=== PATIENT | male | born 1955 | race Caucasian/White ===

== ENCOUNTER 2017-01-28 06:22 | Inpatient (IN) ==
--- NOTE | 2017-01-27 18:24 | History and Physical ---
CHIEF COMPLAINT Right knee pain. HPI This 61-year-old gentleman has had pain in his right knee for many years. The pain is becoming severe and disabling in nature. Pain is described as aching. It does not radiate. It is aggravated with squatting, movement and walking activities. He reports weakness, swelling, sensation of the knee giving way, locking and popping. He has tried rest, Aleve, pain medication, Lyrica and exercises without improvement of his symptoms. PAST MEDICAL HISTORY Anxiety. Depression. Diabetes. Hypertension. Hypercholesterolemia. Sleep apnea for uses CPAP. Thyroid disease. Obesity. CURRENT MEDICATIONS Advair. Cymbalta. Glucophage. Klonopin. Lipitor. Lyrica. Naproxen. Neurontin. Singulair. Zestril. Aspirin. Calcium. Vitamin B12. Iron. Thyroid. Multivitamin. Trazodone. ALLERGIES Penicillin which has caused restricted airway problems. Remainder of his medical history is well documented in Dr. Espinoza's dictation on the chart. Please refer to that for details. REVIEW OF SYSTEMS Constitutional: Negative for chills, fever, fatigue, malaise, or weight loss. HEENT: Negative for headache, or dizziness. Respiratory: Negative for cough, shortness of air, recent respiratory infections, or wheezing. Cardiovascular: Negative for chest pain, palpitations, leg swelling, or syncope. Gastrointestinal: Negative for abdominal pain, constipation, diarrhea, vomiting , heartburn, or nausea. Skin: Negative for skin infection or rash. Neurological: Negative for numbness of extremity or seizures. Psychiatric: Positive for anxiety and depression. Hematologic/Lymphatic: Negative for easy bleeding or easy bruising. PHYSICAL EXAMINATION This is a 61-year-old male who is cooperative and healthy. He is in no acute distress. His gait is antalgic favoring the right. He does not use any assistive device. Psychologically, he has a normal mood and affect. The right lower extremity shows the knee to be stable to ligamentous exam. He does have a 1+ effusion. He has a fixed varus deformity with tenderness of the medial joint line. The hip has normal range of motion. The skin shows no lesions or rashes. Neurovascular is grossly intact. X-RAYS The patient has severe arthritic change with [id number] articulation at the medial joint compartment. There is subchondral sclerosis and osteophyte formation. ASSESSMENT On the exam he has advanced primary osteoarthritis of the right knee. PLAN Due to the severity of his symptoms, the x-ray findings and failure of nonsurgical treatment, Dr. Espinoza has recommended a right total knee arthroplasty. Risks versus benefits, alternative treatments, possible complications of surgery have all been explained to the patient. Questions have been answered to his satisfaction. Will plan to proceed with a right total knee on 01/28/2017. NOEMY
--- OUTSIDE RECORDS SUMMARY | 2017-01-28 06:28 | External Medical Summary | Continuity of Care Document ---
:[address] [facility] Allergies Active Description Code Type Severity Reaction Onset Reported/ Identified Relationship Clinical to Patient Status Yes Penicillins 476 Drug N/A N/A 08/20/2016 Confirmed Aller or gy Verified Medications Problems Date Dx Attending Type Code Diagnosis Diagnosed By Coded 09/13/2010 D 244.9 HYPOTHYROIDISM NOS 09/13/2010 D 272.0 PURE HYPERCHOLESTEROLEM 09/13/2010 D 311 DEPRESSIVE DISORDER NEC 09/19/2010 D 276.7 HYPERPOTASSEMIA 12/20/2010 D 250.00 DM2/NOS UNCOMP NSU 12/20/2010 D 272.0 PURE HYPERCHOLESTEROLEM 08/06/2011 D V12.72 PERSONAL HISTORY POLYPS 08/06/2011 D V76.51 SCREENING MAL YOLANDA COLON 08/12/2011 D 722.10 LUMBAR DISC DISPLACEMENT 01/13/2012 D 244.9 HYPOTHYROIDISM NOS 01/13/2012 D 272.0 PURE HYPERCHOLESTEROLEM 07/28/2012 KAITLYNN Rico 401.1 BENIGN HYPERTENSION YU YAO 12/19/2012 KAITLYNN Rico 278.01 MORBID OBESITY YU YAO 01/03/2013 Leticia YAO, F 244.9 HYPOTHYROIDISM NOS Ramiro A 01/03/2013 Leticia YAO, F 250.00 DIAB MARIAM WO COMPL, TYPE Ramiro A II OR UNSPEC TYPE, NOT UN 01/03/2013 Leticia YAO, F 272.4 HYPERLIPIDEMIA NEC/NOS Ramiro A 01/03/2013 Leticia YAO, F 278.01 MORBID OBESITY Ramiro A 01/03/2013 Leticia YAO, F 296.80 BIPOLAR DISORDER, Ramiro A UNSPECIFIED 01/03/2013 Leticia YAO, F 300.01 PANIC DISORDER WITHOUT Ramiro A AGORAPHOBIA 01/03/2013 Leticia YAO, F 327.23 OBSTRUCTIVE SLEEP APNEA Ramiro A (ADULT) (PEDIATRIC) 01/03/2013 Leticia YAO, F 401.9 HYPERTENSION NOS Ramiro A 01/03/2013 Leticia YAO, F 493.90 ASTHMA, UNSPECIFIED Ramiro A 01/03/2013 Leticia YAO, F 530.81 ESOPHAGEAL REFLUX Ramiro A 01/03/2013 Leticia YAO, F 716.90 ARTHROPATHY NOS-UNSPEC Ramiro A 01/03/2013 Leticia YAO, F V15.82 HISTORY OF TOBACCO USE Ramiro A 01/03/2013 Leticia YAO, F V58.66 LONG-TERM (CURRENT) USE Ramiro A OF ASPIRIN 01/03/2013 Leticia YAO, F V85.41 BODY MASS INDEX Ramiro A 40.0-44.9, ADULT 11/03/2013 KAITLYNN Rico 260 DAVE YAO, YU R 11/03/2013 KAITLYNN Rico 278.00 OBESITY, UNSPECIFIED , YU Gordon 11/03/2013 KAITLYNN Rico 401.9 HYPERTENSION NOS , YU Gordon 11/16/2013 KAITLYNN Rico 244.9 HYPOTHYROIDISM NOS , YU Gordon 01/09/2015 Krupa YAO, Ot 493.90 Eduardo O 01/09/2015 Krupa YAO, Ot 493.90 Eduardo O 01/13/2015 Krupa YAO, Ot 493.90 Eduardo O 01/15/2015 Krupa YAO, Ot 493.90 Eduardo O 01/15/2015 PAULETTE ANDREWS Ot M25.562 S BOTTLE WASHER MACHINE 01/31/2015 PAULETTE ANDREWS Ot M25.562 S BOTTLE WASHER MACHINE 07/31/2015 KAITLYNN Rico E11.9 Type 2 diabetes mellitus YU YAO without complications 07/31/2015 KAITLYNN Rico I10 Essential (primary) YU YAO hypertension 07/31/2015 KAITLYNN Rico R06.00 Dyspnea, unspecified YU YAO 01/24/2016 KAITLYNN Rico E03.9 Hypothyroidism, YU YAO unspecified 01/24/2016 KAITLYNN Rico I10 Essential (primary) YU YAO hypertension 12/25/2016 KAITLYNN Rico Z01.818 Encounter for other YU YAO preprocedural examination Procedures Code Description Performed By Performed On METABOLIC PANEL KAITLYNN ADAIR MD, 09/13/2010 [id number] TOTAL CA YU R HEPATIC KAITLYNN ADAIR MD, 09/13/2010 01632 FUNCTION PANEL YU R ASSAY THYROID KAITLYNN ADAIR MD, 09/13/2010 82713 STIM HORMONE YU R ELECTROLYTE KAITLYNN ADAIR MD, 09/19/2010 55524 PANEL YU R LIPID PANEL KAITLYNN ADAIR MD, 12/20/2010 07768 YU R HEPATIC KAITLYNN ADAIR MD, 12/20/2010 26548 FUNCTION PANEL YU R DIAGNOSTIC KAITLYNN ADAIR MD, 08/06/2011 08050 COLONOSCOPY JORGE D METABOLIC PANEL KAITLYNN ADAIR MD, 08/12/2011 90208 TOTAL CA JORGE D COMPLETE CBC, KAITLYNN ADAIR MD, 08/12/2011 01678 AUTOMATED JORGE D PROTHROMBIN KAITLYNN ADAIR MD, 08/12/2011 87083 TIME JORGE D THROMBOPLASTIN KAITLYNN ADAIR MD, 08/12/2011 93403 TIME, PARTIAL JORGE D ASSAY THYROID KAITLYNN ADAIR MD, 01/13/2012 26023 STIM HORMONE YU R METABOLIC PANEL KAITLYNN ADAIR MD, 07/28/2012 31463 TOTAL CA YU R Lakeshia YAO, Estephan 10/04/2012 45.16 ESOPHAGOGASTRODUODENOSCOPY [EGD] N W/CLOSED BIOPSY COMPREHEN KAITLYNN ADAIR MD, 12/19/2012 18535 METABOLIC PANEL YU R LAPAROSCOPIC Leticia YAO, 01/03/2013 44.38 GASTROENTEROSTOMY Ramiro A COMPREHEN KAITLYNN ADAIR MD, 11/03/2013 33623 METABOLIC PANEL YU R COMPLETE CBC, KAITLYNN ADAIR MD, 11/03/2013 06770 AUTOMATED YU R ASSAY THYROID KAITLYNN ADAIR MD, 11/16/2013 73113 STIM HORMONE YU R CARDIOVASCULAR KAITLYNN ADAIR MD, 07/31/2015 31658 STRESS TEST YU R METABOLIC PANEL KAITLYNN ADAIR MD, 01/24/2016 90640 TOTAL CA YU R ASSAY THYROID KAITLYNN ADAIR MD, 01/24/2016 72572 STIM HORMONE YU R COMPREHEN KAITLYNN ADAIR MD, 12/25/2016 65356 METABOLIC PANEL YU R COMPLETE CBC KAITLYNN ADAIR MD, 12/25/2016 02802 W/AUTO DIFF WBC YU R Encounters ACCT No. Visit Discharge Status Pt. Type Provider Facility Loc./Unit Complaint Date/Time [id number] 01/03/2013 01/05/2013 DIS Inpatien Leticia Lawson8TN 066 10:16:00 14:50:00 t , [facility] [id number] 12/27/2012 12/27/2012 DIS Outpatie Leticia LawsonPOA 575 12:49:00 12:49:00 nt , [facility] [id number] 10/04/2012 10/04/2012 DIS Outpatie Lakeshia YAO, Chance LawsonEND 194 06:03:00 22:46:00 nt [facility] [id number] 01/09/2015 01/09/2015 CLS Outpatie Jose ANDREWS RAD 019 16:12:00 23:59:59 nt [facility] BOTTLE WASHER MACHINE [id number] 03/16/2013 03/16/2013 CLS Outpatie Krupa Wagner RT 045 12:52:00 23:59:59 nt , [facility] O [id number] 12/25/2016 12/25/2016 DIS Outpatie ULLOM Reading LAB 16:01:00 16:01:00 nt [facility] R [id number] 08/20/2016 08/20/2016 DIS Outpatie ULLOM Reading LUIGI 07:30:00 09:25:[id number] 01/24/2016 01/24/2016 DIS Outpatie ULLOM Reading ALAB 10:20:00 10:20:00 nt MANA Dia [facility] R [id number] 07/31/2015 07/31/2015 DIS Outpatie ULLOM [facility] MED 09:30:00 11:05:00 nt MANA Dia MD, [facility] R [id number] 11/16/2013 11/16/2013 DIS Outpatie ULLOM Reading ALAB 11:08:00 11:08:00 nt MANA Dia MD, [facility] R [id number] 11/03/2013 11/03/2013 DIS Outpatie ULLOM Reading ALAB 16:25:00 16:25:00 nt MANA Dia MD, [facility] R [id number] 12/19/2012 12/19/2012 DIS Outpatie ULLOM Reading ALAB 15:44:00 15:44:00 nt MANA Dia MD, [facility] R [id number] 07/29/2012 07/29/2012 DIS Outpatie ULLOM Reading ALAB 07:28:00 07:28:00 nt MANA Dia MD[facility] R [id number] 01/13/2012 Document 14:19:00 Registra tion [id number] 08/12/2011 Document 10:52:00 Registra tion [id number] 08/06/2011 Document 07:15:00 Registra tion [id number] 12/20/2010 Document 11:28:00 Registra tion [id number] 09/19/2010 Document 13:53:00 Registra tion [id number] 09/13/2010 Document 12:28:00 Registra tion
--- OUTSIDE RECORDS SUMMARY | 2017-01-28 06:28 | External Medical Summary ---
:1955 Author Organization [employer] Care Team Providers Name Role Phone Nader Tang Provider Role Unavailable Allergies, Adverse Reactions, Alerts Substance Reaction Event Type Penicillin Info Not Available Drug Allergy Problems Problem Type Condition Code Onset Dates Condition Status Assessment Abnormal cardiovascular stress test R94.39 Active Assessment Chest pain R07.9 Active Assessment Abnormal EKG R94.31 Active Problem Abnormal cardiovascular stress test R94.39 Active Problem Dyspnea on exertion R06.09 Active Problem Abnormal EKG R94.31 Active Problem Hypertension I10 Active Problem Dyslipidemia E78.5 Active Problem FH ischemic heart disease Z82.49 Active Problem Chest pain R07.9 Active Assessment FH ischemic heart disease Z82.49 Active Assessment Dyslipidemia E78.5 Active Assessment Hypertension I10 Active Assessment Dyspnea on exertion R06.09 Active Medications Medication Code Code Instructions Start End Date Status Dosage System Date Trazodone HCl [facility] 95439-18 100 MG Orally 3 tablet 60-00 Once a day at bedtime Abilify [facility] 24004-21 5 MG Orally Once 1 tablet 45-30 a day Calcium Caltrate NDC 0 PO Qd I tablet Metformin HCl NDC 32858-92 1000 MG Orally 1 tablet 14-01 Tw[place] [address]-96 40 MG Orally 1 tablet 55-10 Once a day in the evening Cymbalta [facility] 94667-11 60 MG Orally 1 capsule 37-01 [place] [address]-20 250 MG Orally qd 2 tablet 47-01 [place] [address]-48 1 MG Orally 1 tablet 33-01 Twice a day Levothyroxine [facility] 87305-25 175 MCG Orally 1 tablet Sodium 17-01 [place] [address]-99 40 MG Orally 1 tablet 70-01 [place] [address]-01 81 MG Orally 1 tablet 74-68 [place] [address]-60 20 MG Orally as not Citrate 17-98 dir defined Procedures Procedure Coding System Code Date Office Consultation Level 4 CPT-4 94103 August 08, 2015 ELECTROCARDIOGRAM, COMPLETE CPT-4 79154 August 08, 2015 Vital Signs Date/Time: August 08, 2015 BMI 47.45 Index Weight 243.0 lbs Height 5'11 in Cardiac Monitoring Heart Rate 62 /min Oximetry 98 % Blood Pressure Diastolic 72 mm Hg Blood Pressure Systolic 120 mm Hg Results Name Result Date Reference Range Unit Abnormality Flag AtriaECW Summary Purpose eClinicalWorks Submission
--- OUTSIDE RECORDS SUMMARY | 2017-01-28 06:28 | External Medical Summary ---
:1955 Author Organization [employer] Care Team Providers Name Role Phone Nader Tang Provider Role Unavailable Allergies No Known Allergies Problems Problem Type Condition Code Onset Dates Condition Status Problem Abnormal cardiovascular stress test R94.39 Active Problem Dyspnea on exertion R06.09 Active Problem Abnormal EKG R94.31 Active Problem Hypertension I10 Active Problem Dyslipidemia E78.5 Active Problem FH ischemic heart disease Z82.49 Active Problem Chest pain R07.9 Active Medications No Known Medications Results No Known Results Summary Purpose eClinicalWorks Submission
--- OUTSIDE RECORDS SUMMARY | 2017-01-28 06:28 | External Medical Summary ---
:1955 Author Organization [facility]. Summary purpose CCDA Sent to [facility] Chief Complaint and Reason for Visit Admit Diagnosis 1 pre-op Problem list No authorized problems tracked for continuity of care are available for this visit. Encounters No authorized problems tracked for encounter diagnoses are available for this visit. Medications No medications recorded for this patient visit Allergies, adverse reactions, alerts Allergen Category Ingredient Status Reaction Severity Onset Penicillins Drug Penicillins Active Immunizations No immunizations recorded for this patient visit Relevant diagnostic tests and/or laboratory data No authorized results are available for this patient visit History of procedures Procedure Code Code Type Description Date Performed Performing Physician 52014 CPT-4 COMPREHEN METABOLIC 12-25-2016 YU ADAIR PANEL 16152 CPT-4 COMPLETE CBC W/AUTO 12-25-2016 YU ADAIR DIFF WBC Functional status No functional or cognitive status observations are available for this visit. Vital signs No authorized vital signs are available for this visit. Social history No Social History or smoking status observations were recorded for this visit. ( Unknown if ever smoked.) Treatment Plan No treatment plan text is available for this visit. Hospital discharge instructions No discharge instruction text is available for this visit.
[2017-01-28] MEDS ORDERED: FAMOTIDINE PB 20 MG/50 ML BAG IV ONE (06:34)
[2017-01-28] MEDS ORDERED: ONDANSETRON 4 MG/2 ML INJECTION IVP ONE (06:34)
[2017-01-28] MEDS ORDERED: CLINDAMYCIN PB 900 MG/50 ML BAG IV ONE (06:34)
[2017-01-28] MEDS ORDERED: EPINEPHrine PF 0.25 MG, BUPIVACAINE 0.25% PF 30 ML, MORPHINE SULFATE 15 MG, KETOROLAC I... OPSITE ONE (06:34)
[2017-01-28] MEDS ORDERED: LIDOCAINE 1% (10mg/ml) 2mL INJ PF SDV ID ONE (06:34)
[2017-01-28] MEDS ORDERED: TRANEXAMIC ACID 1,000 MG in NS 100 ML IV ONE (06:34)
[2017-01-28] MEDS ORDERED: SALINE FLUSH 10ml SYRINGE IV PRN (06:34)
[2017-01-28] MEDS ORDERED: METOCLOPRAMIDE 10mg/2ml INJECTION IVP ONE (06:34)
[2017-01-28] MEDS ORDERED: NOZIN NASAL SWAB NAS ONE (06:34)
[2017-01-28] MEDS ORDERED: ACETAMINOPHEN 500 MG TABLET PO ONE (06:34)
[2017-01-28 06:42] VITALS: RESP 16; TEMP 98.4; O2SAT 93; BMI 32.7
[2017-01-28 07:31] VITALS: PULSE 67
[2017-01-28] MEDS ORDERED: VANCOMYCIN 1,000 MG INJECTION ONE (08:01)
[2017-01-28] MEDS ORDERED: LR 1,000 ML IV SCH (16:15)
[2017-01-29 09:12] VITALS: BP 80/45
== END 2017-01-28 08:14 | disposition home or self-care (01) | DRG 554 ==
LOC: SRG 06:22
PROVIDERS: ADMIT Orthopaedic Surgery; ATTEND Orthopaedic Surgery

== ENCOUNTER 2017-02-11 06:15 | Inpatient (IN) ==
[~2017-02-11 06:15] MED LIST: ACETAMINOPHEN 500 MG TABLET PO ONE; CLINDAMYCIN PB 900 MG/50 ML BAG IV ONE; FAMOTIDINE PB 20 MG/50 ML BAG IV ONE; LIDOCAINE 1% (10mg/ml) 2mL INJ PF SDV ID ONE; MELOXICAM 15 MG TABLET PO ONE; METOCLOPRAMIDE 10mg/2ml INJECTION IVP ONE; ONDANSETRON 4 MG/2 ML INJECTION IVP ONE; TRANEXAMIC ACID 1,000 MG in NS 100 ML IV ONE
--- OUTSIDE RECORDS SUMMARY | 2017-02-11 06:21 | External Medical Summary ---
[...] Date Status Dosage System Date Trazodone HCl [facility] 56683-16 100 MG Orally 3 tablet 60-00 Once a day at bedtime Abilify [facility] 20989-43 5 MG Orally Once 1 tablet 45-30 a day Calcium Caltrate NDC 0 PO Qd I tablet Metformin HCl NDC 37950-60 1000 MG Orally 1 tablet 14-01 Tw[place] [address]-56 40 MG Orally 1 tablet 55-10 Once a day in the evening Cymbalta [facility] 84063-93 60 MG Orally 1 capsule 37-01 [place] [address]-01 250 MG Orally qd 2 tablet 47-01 [place] [address]-68 1 MG Orally 1 tablet 33-01 Twice a day Levothyroxine [facility] 93029-95 175 MCG Orally 1 tablet Sodium 17-01 [place] [address]-28 40 MG Orally 1 tablet 70-01 [place] [address]-07 81 MG Orally 1 tablet 74-68 [place] [address]-07 20 MG Orally as not Citrate 17-98 dir defined Procedures Procedure Coding System Code Date Office Consultation Level 4 CPT-4 74121 August 08, 2015 ELECTROCARDIOGRAM, COMPLETE CPT-4 26503 August 08, 2015 Vital Signs Date/Time: August 08, 2015 BMI 47.45 Index Weight 243.0 lbs Height 5'11 in Cardiac Monitoring Heart Rate 62 /min Oximetry 98 % Blood Pressure Diastolic 72 mm Hg Blood Pressure Systolic 120 mm Hg Results Name Result Date Reference Range Unit Abnormality Flag AtriaECW Summary Purpose [employer]ClinicalWorks Submission
--- OUTSIDE RECORDS SUMMARY | 2017-02-11 06:22 | External Medical Summary | Continuity of Care Document ---
:[address] [facility] Allergies Active Description Code Type Severity Reaction Onset Reported/ Identified Relationship Clinical to Patient Status Yes Penicillins 476 Drug N/A N/A 08/20/2016 Confirmed Aller or gy Verified Medications There is no data. Problems Date Dx Attending Type Code Diagnosis [...] 296.80 BIPOLAR DISORDER, Ramiro A UNSPECIFIED 01/03/2013 Leitcia YAO, F 300.01 PANIC DISORDER WITHOUT Ramiro A AGORAPHOBIA 01/03/2013 Leticia YAO, F 327.23 OBSTRUCTIVE SLEEP APNEA Ramiro A (ADULT) (PEDIATRIC) 01/03/2013 Leticia YAO, F 401.9 HYPERTENSION NOS Ramiro A 01/03/2013 Leticia YAO, F 493.90 ASTHMA, UNSPECIFIED Ramiro A 01/03/2013 Leticia YAO, F 530.81 ESOPHAGEAL REFLUX Ramiro A 01/03/2013 Leticia YAO, F 716.90 ARTHROPATHY NOS-UNSPEC Ramiro A 01/03/2013 Leticia YOA, F V15.82 HISTORY OF TOBACCO USE Ramiro A 01/03/2013 Leticia YAO, F V58.66 LONG-TERM (CURRENT) USE Ramiro A OF ASPIRIN 01/03/2013 Leticia YAO, F V85.41 BODY MASS INDEX Ramiro A 40.0-44.9, ADULT 11/03/2013 KAITLYNN Rico 260 DAVE YAO, YU Gordon 11/03/2013 KAITLYNN Rico 278.00 OBESITY, UNSPECIFIED , YU Gordon 11/03/2013 KAITLYNN Rico 401.9 HYPERTENSION NOS , YU Gordon 11/16/2013 KAITLYNN Rico 244.9 HYPOTHYROIDISM NOS , YU Gordon 01/09/2015 Krupa YAO, Ot 493.90 Eduardo O 01/09/2015 Krupa YAO, Ot 493.90 Eduardo O 01/13/2015 Krupa YAO, Ot 493.90 Eduardo O 01/15/2015 Krupa YAO, Ot 493.90 Eduardo O 01/15/2015 PAULETTE ANDREWS Ot 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 01/31/2015 PAULETTE ANDREWS Ot 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 07/31/2015 KAITLYNN Rico E11.9 Type 2 diabetes [...] Description Performed By Performed On METABOLIC PANEL TOTAL KAITLYNN ADAIR MD, 09/13/2010 [id number] CA YU R HEPATIC FUNCTION PANEL KAITLYNN ADAIR MD, 09/13/2010 [id number] YU R ASSAY THYROID STIM KAITLYNN ADAIR MD, 09/13/2010 [id number] HORMONE YU R ELECTROLYTE PANEL KAITLYNN ADAIR MD, 09/19/2010 [id number] YU R LIPID PANEL KAITLYNN ADAIR MD, 12/20/2010 [id number] YU R HEPATIC FUNCTION PANEL KAITLYNN ADAIR MD, 12/20/2010 [id number] YU R DIAGNOSTIC COLONOSCOPY KAITLYNN ADAIR MD, 08/06/2011 70770 JORGE Rico METABOLIC PANEL TOTAL KAITLYNN ADAIR MD, 08/12/2011 74808 CA JORGE Rico COMPLETE CBC, AUTOMATED KAITLYNN ADAIR MD, 08/12/2011 81535 JORGE Rico PROTHROMBIN TIME KAITLYNN ADAIR MD, 08/12/2011 [id number] JORGE Rico THROMBOPLASTIN TIME, KAITLYNN ADAIR MD, 08/12/2011 [id number] PARTIAL JORGE Rico ASSAY THYROID STIM KAITLYNN ADAIR MD, 01/13/2012 [id number] HORMONE YU R METABOLIC PANEL TOTAL KAITLYNN ADAIR MD, 07/28/2012 07092 CA YU R Lakeshia YAO, Estephan 10/04/2012 45.16 ESOPHAGOGASTRODUODENOSCOPY [EGD] N W/CLOSED BIOPSY COMPREHEN METABOLIC KAITLYNN ADAIR MD, 12/19/2012 [id number] PANEL YU R LAPAROSCOPIC Leticia YAO, 01/03/2013 44.38 GASTROENTEROSTOMY Ramiro A COMPREHEN METABOLIC KAITLYNN ADAIR MD, 11/03/2013 39032 PANEL YU R COMPLETE CBC, AUTOMATED KAITLYNN ADAIR MD, 11/03/2013 11646 YU R ASSAY THYROID STIM KAITLYNN ADAIR MD, 11/16/2013 89937 HORMONE YU R CARDIOVASCULAR STRESS KAITLYNN ADAIR MD, 07/31/2015 13749 TEST YU R METABOLIC PANEL TOTAL KAITLYNN ADAIR MD, 01/24/2016 68445 CA YU R ASSAY THYROID STIM KAITLYNN ADAIR MD, 01/24/2016 [id number] HORMONE YU R COMPREHEN METABOLIC KAITLYNN ADAIR MD, 12/25/2016 98615 PANEL YU R COMPLETE CBC W/AUTO KAITLYNN ADAIR MD, 12/25/2016 23417 DIFF WBC YU R <section xmlns="urn:hl7-org:v3" xmlns:xsi="http://www.w3.org/ 2001/XMLSchema-instance"> <templateId root=" [id number]" /> <templateId root=" [id number]" /> <code codeSystemName=" LOINC" codeSystem="[id number]" code="48915-7&quot ; displayName="Results" /> <title>Results</title> &lt ;text> <table> <thead> <tr> <th& gt;Test</th> <th>Result</th> <th>Range </th> </tr> </thead> <tbody> &lt ;tr> <th colspan="10">Basic Metabolic Panel - 17:10</th> </tr> <tr> <td>Sodium& lt;/td> <td>142 MMOLL</td><td>134-145</td> </tr> <tr> <td>Potassium</td> <td>4.8 MMOLL</td> <td>3.6-5.0</td> </tr> <tr> <td>Chloride</td> <td>102 MMOLL</td> <td>98-107</td> </ tr> <tr> <td>CO2</td> <td> 30 MMOLL</td> <td>22-30</td> </tr> & lt;tr> <td>Glucose</td> <td>76 MG/DL</ td><td>75-110</td> </tr> <tr> <td>BUN</td> <td>17 MG/DL</td> <td> 9-20</td> </tr> <tr> <td> Creatinine</td> <td>.8 MG/DL</td> <td> 0.8-1.7</td> </tr> <tr> <td> Calcium</td> <td>9.5 MG/DL</td> <td>8.4- 10.2</td> </tr> <tr> <th colspan="10 ">GLUCOSE (POC) - 10/04/12 07:06</th> </tr> <tr > <td>GLUCOSE (POC)</td> <td>115mg/dL< /td> <td>70-99</td> </tr> <tr&gt ; <th colspan="10">HELICOBACTER UREASE SCREEN - 10:41</th> </tr> <tr> <td> Uncategorized</td> <td> </td> <td /> </tr> <tr> <th colspan="10"> Comprehensive Metabolic Panel - 12/19/12 14:59</th> </tr> <tr><td>Sodium</td> <td>139 MMOLL</td& gt; <td>134-145</td> </tr> <tr> <td>Potassium</td> <td>4.3 MMOLL</td> <td>3.6-5.0</td> </tr> <tr> & lt;td>Chloride</td> <td>97 MMOLL</td> &lt ;td>98-107</td> </tr> <tr> <td&gt ;CO2</td> <td>30 MMOLL</td> <td>22-30& lt;/td> </tr> <tr> <td>Glucose</ td> <td>99 MG/DL</td> <td>75-110</td& gt; </tr> <tr> <td>BUN</td> <td>17 MG/DL</td> <td>9-20</td> &lt ;/tr> <tr> <td>Creatinine</td> &lt ;td>.9 MG/DL</td> <td>0.8-1.7</td> </tr& gt; <tr> <td>Calcium</td> <td> 9.5 MG/DL</td> <td>8.4-10.2</td> </tr> <tr> <td>T Bili</td> <td>.3 MG/ DL</td> <td>0.2-1.3</td> </tr> & lt;tr> <td>T. Protein</td> <td>7.2 G/DL& lt;/td> <td>6.3-8.2</td> </tr> < tr> <td>A/G Ratio</td> <td>1.3 RATIO</td> <td /></tr> <tr> <td>Albumin< /td> <td>4.1 G/DL</td> <td>3.5-5.0</td > </tr> <tr> <td>Alk Phos</td&gt ; <td>84 U/L</td> <td>38-126</td> </tr> <tr> <td>ALT</td> &lt ;td>43 U/L</td> <td>11-66</td> </tr> <tr> <td>AST</td> <td>50 U/L< /td> <td>14-36</td> </tr> <tr> <th colspan="10">GLUCOSE (POC) - 12/27/12 13:43</th&gt ; </tr> <tr> <td>GLUCOSE (POC)</td> <td>93 mg/dL</td> <td>70-99</td> </tr> <tr> <th colspan="10">CBC - 12/27/12 13:45</th> </tr> <tr> <td&gt ;MEAN CELL HGB</td> <td>30.5 pg</td> <td& gt;27.0-33.0</td> </tr> <tr> <td> MEAN CELL HGB CONCENTRATION</td> <td>34.9 g/dL</td> <td>32.0-37.0</td> </tr> <tr> <td>MEAN CELL VOLUME</td> <td>87.3 fl</td& gt; <td>80.0-100.0</td> </tr> <tr&gt ; <td>RED BLOOD CELL</td> <td>5.05 m/cumm&lt ;/td> <td>4.00-6.00</td> </tr> < tr> <td>RED CELL DISTRIBUTION WIDTH</td> <td >12.4 %</td> <td>11.0-15.6</td> </tr&gt ; <tr> <td>WHITE BLOOD CELL</td> < td>5.9k/cumm</td> <td>5.0-10.0</td> </tr > <tr> <td>HEMOGLOBIN</td> <td>15.4 gm/dL</td> <td>14.0-18.0</td> </tr> <tr> <td>HEMATOCRIT</td><td>44.1 %& lt;/td> <td>40.0-54.0</td> </tr> <tr&gt ; <td>PLATELET COUNT</td> <td>182 k/cumm< /td> <td>150-400</td> </tr> <tr> <th colspan="10">GLUCOSE (POC) - 01/03/13 11:00</th& gt; </tr> <tr><td>GLUCOSE (POC)</td> <td>96 mg/dL</td> <td>70-99</td> & lt;/tr> <tr> <th colspan="10">GLUCOSE ( POC) - 01/03/13 12:20</th> </tr> <tr> & lt;td>GLUCOSE (POC)</td> <td>95 mg/dL</td> <td>70-99</td> </tr> <tr> < th colspan="10">URINALYSIS, ROUTINE - 01/03/13 12:22</th> </tr> <tr> <td>UA LEUKOCYTE ESTERASE DIPSTICK</td> <td>NEGATIVE </td> <td> NEGATIVE</td> </tr> <tr> <td>UA NITRITE DIPSTICK</td> <td>NEGATIVE </td> &lt ;td>NEGATIVE</td> </tr> <tr> <td& gt;UA PROTEIN DIPSTICK</td> <td>NEGATIVE </td> <td>NEGATIVE</td> </tr> <tr> <td>UA GLUCOSE DIPSTICK</td> <td>NEGATIVE </td> <td>NEGATIVE</td> </tr> <tr> <td>UA KETONE DIPSTICK</td> <td>3+ </td> & lt;td>NEGATIVE</td> </tr> <tr> < td>UA UROBILINOGEN DIPSTICK</td> <td>NORMAL </td> <td>NORMAL</td> </tr> <tr> <td>UA BILIRUBIN DIPSTICK</td> <td>NEGATIVE </ td> <td>NEGATIVE</td> </tr> <tr& gt; <td>UA BLOOD DIPSTICK</td> <td>NEGATIVE </td> <td>NEGATIVE</td> </tr> &lt ;tr> <td>UA VOLUME FOR EXAM</td> <td> 12.0 mL</td> <td>(12mL STD)</td> </tr> <tr> <td>UA SPECIFIC GRAVITY</td> &lt ;td>1.021 </td> <td>1.015-1.025</td> </ tr> <tr> <td>UR PH</td> <td>6.0 < /td> <td>5.0-7.0</td> </tr> <tr& gt; <th colspan="10">GLUCOSE (POC) - 01/03/13 14:45< /th> </tr> <tr> <td>GLUCOSE (POC)&lt ;/td> <td>109 mg/dL</td> <td>70-99</td > </tr> <tr> <th colspan="10"> CREATINE KINASE (CK/CPK) - 01/03/13 18:19</th> </tr> & lt;tr> <td>CREATINE KINASE (CK/CPK)</td> <td&gt ;118 Units/L</td> <td>< 309</td> </ tr> <tr> <th colspan="10">CK MB - 01/03 18:19</th> </tr> <tr> <td>CK MB</ td> <td>1.9 ng/mL</td> <td>< 4.0& lt;/td> </tr> <tr> <th colspan="10 ">TROPONIN I - 01/03/13 18:19</th> </tr> < tr> <td>TROPONIN I</td> <td>< 0.02 ng/mL</td> <td>< 0.07</td> </tr> <tr> <th colspan="10">GLUCOSE (POC) - 00:02</th> </tr> <tr> <td>GLUCOSE (POC) </td> <td>150 mg/dL</td> <td>70-99< /td> </tr> <tr> <th colspan="10& quot;>GLUCOSE (POC) - 01/04/13 00:52</th> </tr> &lt ;tr> <td>GLUCOSE (POC)</td> <td>183 mg/dL </td> <td>70-99</td> </tr> <tr > <th colspan="10">METABOLIC PANEL, BASIC - 04:53</th> </tr> <tr> <td> POTASSIUM</td><td>4.5 mmol/L</td> <td>3.5-5.3& lt;/td> </tr> <tr> <td>EST GFR (MDRD )</td> <td>47 mL/min</td> <td>&gt ; 59</td> </tr> <tr> <td>ANION GAP</td> <td>8 mmol/L</td> <td>5-15&lt ;/td> </tr> <tr> <td>EST CrCl (CG)&lt ;/td> <td>52 mL/min</td> <td>> 59& lt;/td> </tr> <tr> <td>GLUCOSE</ td> <td>143 mg/dL</td> <td>70-99</td& gt; </tr> <tr> <td>CALCIUM</td> <td>8.5 mg/dL</td> <td>8.5-10.1</td> </tr> <tr> <td>BLOOD UREA NITROGEN</ td> <td>16 mg/dL</td> <td>7-20</td&gt ; </tr> <tr> <td>CREATININE</td> <td>1.6 mg/dL</td> <td>0.8-1.3</td> </tr> <tr> <td>SODIUM</td> &lt ;td>139 mmol/L</td> <td>135-148</td> </ tr> <tr> <td>CHLORIDE</td> <td& gt;105 mmol/L</td> <td>98-110</td> </tr&gt ; <tr> <td>CARBON DIOXIDE</td> <td& gt;26 mmol/L</td> <td>21-32</td> </tr> <tr> <th colspan="10">CBC - 01/04/13 04:53 </th> </tr> <tr> <td>MEAN CELL HGB</td> <td>30.2 pg</td> <td>27.0- 33.0</td> </tr> <tr> <td>MEAN CELL HGB CONCENTRATION</td> <td>33.7 g/dL</td> <td>32.0-37.0</td> </tr> <tr> < td>MEAN CELL VOLUME</td> <td>89.8 fl</td> <td>80.0-100.0</td> </tr> <tr> <td>RED BLOOD CELL</td> <td>4.60 m/cumm</td> <td>4.00-6.00</td> </tr> <tr> <td>RED CELL DISTRIBUTION WIDTH</td> <td>12.8 & amp;#37;</td> <td>11.0-15.6</td> </tr> <tr> <td>WHITE BLOOD CELL</td> <td&gt ;15.0 k/cumm</td> <td>5.0-10.0</td> </tr&gt ; <tr> <td>HEMOGLOBIN</td> <td> 13.9 gm/dL</td> <td>14.0-18.0</td> </tr&gt ; <tr> <td>HEMATOCRIT</td> <td> 41.3 %</td> <td>40.0-54.0</td> </tr > <tr> <td>PLATELET COUNT</td> &lt ;td>209 k/cumm</td> <td>150-400</td> </ tr> <tr> <th colspan="10">GLUCOSE (POC ) - 01/04/13 05:18</th> </tr> <tr> < td>GLUCOSE (POC)</td> <td>150 mg/dL</td> <td>70-99</td> </tr> <tr> <th colspan="10">GLUCOSE (POC) - 01/04/13 11:29</th> </tr& gt; <tr> <td>GLUCOSE (POC)</td> < td>129 mg/dL</td> <td>70-99</td> </tr&gt ; <tr> <th colspan="10">HEMOGLOBIN - 01/04 13:37</th> </tr> <tr> <td> MEAN CELL VOLUME</td> <td>89.7 fl</td><td>80.0- 100.0</td> </tr> <tr> <td> HEMOGLOBIN</td> <td>13.2 gm/dL</td> <td& gt;14.0-18.0</td> </tr> <tr> <th colspan="10">TROPONIN I - 01/04/13 13:37</th> </tr& gt; <tr> <td>TROPONIN I</td> <td& gt;< 0.02 ng/mL</td> <td>< 0.07</td> </tr> <tr> <th colspan="10">GLUCOSE (POC) - 01/04/13 17:40</th> </tr> <tr> < td>GLUCOSE (POC)</td> <td>119 mg/dL</td> <td>70-99</td> </tr> <tr> <th colspan="10">GLUCOSE (POC) - 01/05/13 00:57</th> </ tr> <tr> <td>GLUCOSE (POC)</td> & lt;td>115 mg/dL</td><td>70-99</td> </tr> <tr> <th colspan="10">GLUCOSE (POC) - 06:28</th> </tr> <tr> <td> GLUCOSE (POC)</td> <td>109 mg/dL</td> <td >70-99</td> </tr> <tr> <th colspan="10">GLUCOSE (POC) - 01/05/13 11:48</th> </ tr> <tr> <td>GLUCOSE (POC)</td> & lt;td>104 mg/dL</td> <td>70-99</td> </tr > <tr> <th colspan="10">CBC - 11/03/13 15:45 </th> </tr> <tr> <td>Eos #</td > <td>0.34 x10^3</td> <td>0-0.5</td&gt ; </tr> <tr> <td>Eos %</td& gt; <td>4.9 %</td> <td>0-4</td&gt ;</tr> <tr> <td>HCT</td> <td >39.5 %</td> <td>42.0-52.0</td> &lt ;/tr> <tr> <td>HGB</td> <td> 13.3 G/DL</td> <td>14.0-18.0</td> </tr> <tr> <td>Lymph #</td> <td>1.44 x10 ^3</td> <td>1.0-4.0</td> </tr> & lt;tr> <td>Lymph %</td> <td>20.7 %</td> <td>20-50</td> </tr> <tr> <td>MCH</td> <td>31.1 PG</ td> <td>27.0-31.0</td> </tr> <tr& gt; <td>MCHC</td> <td>33.7 G/DL</td> <td>32.0-36.0</td> </tr> <tr> <td>MCV</td> <td>92.3 FL</td> <td >80-94</td> </tr> <tr> <td> Jessamine #</td> <td>0.56 x10^3</td> <td> 0.0-0.8</td> </tr> <tr> <td>Jessamine %</td> <td>8.0 %</td> <td >1.0-9.0</td> </tr> <tr> <td> MPV</td> <td>11.0 FL</td> <td>6.0-10.0 </td> </tr> <tr> <td>Platelet< /td> <td>178 x10^3</td> <td>150-400</ td> </tr> <tr> <td>RBC</td> <td>4.28 x10^3</td> <td>4.60-6.20</td> </tr> <tr> <td>RDW</td> <td>12.7 %</td> <td>12-15</td> </tr> <tr> <td>WBC</td> < td>6.96 x10^3</td> <td>5.8-10.8</td> </ tr> <tr> <td>Baso #</td> <td&gt ;0.04 x10^3</td> <td>0-0.2</td> </tr> <tr> <td>Baso %</td> <td&gt ;0.6 %</td><td>0-2</td> </tr> < tr> <td>Neut %</td> <td>65.8 &amp ;#37;</td> <td>50-70</td> </tr> & lt;tr> <td>Neut #</td> <td>4.58 x10^3< /td> <td>3.0-7.0</td> </tr> <tr&gt ; <th colspan="10">Comprehensive Metabolic Panel - 02/04 15:45</th> </tr> <tr> <td> Sodium</td> <td>138 MMOLL</td> <td>134 -145</td> </tr> <tr> <td> Potassium</td> <td>4.5 MMOLL</td> <td> 3.6-5.0</td> </tr> <tr> <td>Chloride& lt;/td> <td>99 MMOLL</td><td>98-107</td> </tr> <tr> <td>CO2</td> < td>30 MMOLL</td> <td>22-30</td> </tr&gt ; <tr> <td>Glucose</td> <td>72 MG/DL</td> <td>75-110</td> </tr> <tr> <td>BUN</td> <td>21 MG/DL</td> <td>9-20</td> </tr> <tr> &lt ;td>Creatinine</td> <td>.7 MG/DL</td> &lt ;td>0.8-1.7</td> </tr> <tr> <td& gt;Calcium</td> <td>9.4 MG/DL</td> <td>8.4- 10.2</td> </tr> <tr> <td>T Bili& lt;/td> <td>.6 MG/DL</td> <td>0.2-1.3< /td> </tr> <tr> <td>T. Protein</ td> <td>6.0 G/DL</td> <td>6.3-8.2</td&gt ; </tr><tr> <td>A/G Ratio</td> <td>1.6 RATIO</td> <td /> </tr> & lt;tr> <td>Albumin</td> <td>3.7 G/DL</ td> <td>3.5-5.0</td> </tr> <tr&gt ; <td>Alk Phos</td> <td>64 U/L</td> <td>38-126</td> </tr> <tr> <td>ALT</td> <td>31 U/L</td> <td&gt ;11-66</td> </tr> <tr> <td>AST&lt ;/td> <td>24 U/L</td> <td>14-36</td&gt ; </tr> <tr> <th colspan="10">TSH - 11/16/13 08:42</th> </tr> <tr> <td >TSH</td> <td>2.46UIUML</td> <td> 0.50-6.00</td> </tr> <tr> <th colspan=" 10">Basic Metabolic Panel - 01/24/16 11:23</th> </tr&gt ; <tr> <td>Sodium</td> <td>141 MMOLL</td> <td>134-145</td> </tr> &lt ;tr> <td>Potassium</td> <td>4.7 MMOLL< /td> <td>3.6-5.0</td> </tr> <tr& gt; <td>Chloride</td> <td>103 MMOLL</td& gt; <td>98-107</td> </tr> <tr> <td>CO2</td> <td>31 MMOLL</td> <td>22-30</td> </tr> <tr> < td>Glucose</td> <td>93 MG/DL</td> <td> 75-110</td> </tr> <tr> <td>BUN&lt ;/td> <td>21 MG/DL</td> <td>9-20</td& gt; </tr> <tr> <td>Creatinine</td> <td>.84 MG/DL</td> <td>0.8-1.7</td> < /tr> <tr> <td>Calcium</td> <td& gt;9.5 MG/DL</td> <td>8.4-10.2</td> </tr&gt ; <tr> <td>EGFR</td> <td>93 MLMIN</td> <td /> </tr> <tr> & lt;th colspan="10">TSH -01/24/16 11:36</th> </tr&gt ; <tr> <td>TSH</td> <td>1.79 UIUML& lt;/td> <td>0.50-6.00</td> </tr></tbody& gt; </table> </text> <entry> <organizer moodCode=& quot;EVN" classCode="BATTERY"> <templateId root=" [id number]" /> <id nullFlavor="NA&quot ; /> <code codeSystem="local" code="BMP" displayName="Basic Metabolic Panel" /> <statusCode code=& quot;completed" /> <component> <observation moodCode="EVN" classCode="OBS"> <templateId root="[id number]..22.4.2" /> <id nullFlavor=& quot;NA" /> <code codeSystem="local" code="NA " displayName="Sodium" /> <statusCode code=" completed"/> <effectiveTime value="[id number]" / > <value unit="MMOLL" xsi:type="PQ" value=& quot;142" /> <referenceRange> <observationRange&gt ; <text>134-145</text> </observationRange > </referenceRange> </observation> </ component> <component> <observation moodCode="EVN" classCode="OBS"> <templateId root=" [id number]" /> <id nullFlavor="NA& quot; /> <code codeSystem="local" code="K" displayName="Potassium" /> <statusCode code=" completed" /> <effectiveTime value="[id number]" /> <value unit="MMOLL" xsi:type="PQ" value=& quot;4.8" /> <referenceRange> < observationRange> <text>3.6-5.0</text> & lt;/observationRange> </referenceRange> </ observation> </component> <component> <observation moodCode="EVN" classCode="OBS"> <templateId root="[id number]" /> <id nullFlavor ="NA" /> <code codeSystem="local" code="CL& quot; displayName="Chloride" /> <statusCode code=" completed" /> <effectiveTime value="[id number]" /> <value unit="MMOLL" xsi:type="PQ" value=& quot;102" /> <referenceRange> < observationRange> <text>98-107</text> &lt ;/observationRange> </referenceRange> </observation> </component> <component> <observation moodCode=& quot;EVN" classCode="OBS"> <templateId root=" [id number]2.4.2" /> <id nullFlavor="NA& quot; /> <code codeSystem="local" code="CO2" displayName="CO2" /> <statusCode code="completed& quot; /> <effectiveTime value="110213215977" /> &lt ;value unit="MMOLL" xsi:type="PQ" value="30" /&gt ; <referenceRange> <observationRange> <text>22-30</text> </observationRange> < /referenceRange> </observation> </component> &lt ;component> <observation moodCode="EVN" classCode=" OBS"> <templateId root="2.16.840.1.152700.10.20.22.4.2& quot; /> <id nullFlavor="NA" /> <code codeSystem="local" code="GLU" displayName="Glucose&quot ; /> <statusCode code="completed" /> < effectiveTime value="988576688113" /> <value unit=&quot ;MG/DL" xsi:type="PQ" value="76" /> < referenceRange> <observationRange> <text>75-110</ text> </observationRange> </referenceRange> </observation> </component> <component> <observation moodCode="EVN" classCode="OBS">< templateId root="2.16.840.1.227365.10.20.22.4.2" /> < id nullFlavor="NA" /> <code codeSystem="local&quot ; code="BUN" displayName="BUN" /> < statusCode code="completed" /> <effectiveTimevalue=& quot;118673007701" /> <value unit="MG/DL" xsi:type ="PQ" value="17" /> <referenceRange> <observationRange> <text>9-20</text> </observationRange> </referenceRange> </ observation> </component> <component> < observation moodCode="EVN" classCode="OBS"> < templateId root="2.16.840.1.798260.10.20.22.4.2" /> < id nullFlavor="NA" /> <code codeSystem="local&quot ; code="CREAT" displayName="Creatinine" /> < statusCode code="completed" /> <effectiveTime value=& quot;112319979889" /> <value unit="MG/DL" xsi:type ="PQ" value=".8"/> <referenceRange> <observationRange> <text>0.8-1.7</text> </observationRange> </referenceRange> </ observation> </component> <component> < observation moodCode="EVN" classCode="OBS"> < templateId root="2.16.840.1.880592.10.20.22.4.2" /> < id nullFlavor="NA" /> <code codeSystem="local&quot ; code="CA" displayName="Calcium" /> < statusCode code="completed" /> <effectiveTime value=& quot;053077270082" /> <value unit="MG/DL" xsi:type ="PQ" value="9.5" /> <referenceRange> <observationRange> <text>8.4-10.2</text> </observationRange> </referenceRange> </ observation> </component> </organizer> </entry> & lt;entry> <organizer moodCode="EVN" classCode="BATTERY& quot;> <templateId root="2.16.840.1.482271.10.20.22.4.1" /& gt; <id nullFlavor="NA" /> <code codeSystem=" local" code="GLUMON" displayName="GLUCOSE (POC)" /> <statusCode code="completed" /> <component> <observation moodCode="EVN" classCode="OBS"> <templateId root="2.16.840.1.843932.10.20.22.4.2" /> <id nullFlavor="NA" /> <code codeSystem=" local" code="GLUMON" displayName="GLUCOSE (POC)" /> <statusCode code="completed" /> < effectiveTime value="[id number]" /> <valueunit=" mg/dL" xsi:type="PQ" value="115" /> < interpretationCode codeSystem="local" code="*" /> <referenceRange> <observationRange> <text>70- 99</text> </observationRange> </ referenceRange> </observation> </component> </ organizer> </entry> <entry> <organizer moodCode="EVN " classCode="BATTERY"> <templateId root=" 2.16.840.1.344020.10.20.22.4.1" /> <id nullFlavor="NA&quot ; /> <code codeSystem="local" code="HELICO" displayName="HELICOBACTER UREASE SCREEN" /> <statusCode code="completed" /> <component> <observation moodCode="EVN" classCode="OBS"> <templateId root="2.16.840.1.595446.10.20.22.4.2" /> <id nullFlavor ="NA" /> <code codeSystem="local" code=" [facility]" displayName="Uncategorized" /> <statusCode code="completed" /> <effectiveTime value=" 390208556371" /> <value xsi:type="ST" value=" <pre><b>HELICOBACTER UREASE SCREEN</b> See BelowHELICOBACTER UREASE SCREEN(F) Seng Date/Time: 10/04/2012 10:41 [place] Date/Time: 10/05/2012 07:14SOURCE: BIOPSYSPEC DESC: HELICOBACTER UREASENEGATIVEST. [facility] - [phone] [facility] [place] [address]</ pre>" /> <referenceRange> < observationRange> <text /> </ observationRange> </referenceRange> </observation&gt ; </component> </organizer> </entry> <entry> <organizer moodCode="EVN" classCode="BATTERY"> <templateId root="2.16.840.1.820241.10.20.22.4.1" /> < id nullFlavor="NA" /> <code codeSystem="local" code="CMP13" displayName="Comprehensive Metabolic Panel" /& gt; <statusCode code="completed" /> <component> <observation moodCode="EVN" classCode="OBS"> <templateId root="2.16.840.1.555532.10.20.22.4.2" /> <id nullFlavor="NA" /> <code codeSystem=& quot;local" code="NA" displayName="Sodium" /> <statusCode code="completed" /> <effectiveTime value="927066830069" /> <value unit="MMOLL" xsi:type="PQ" value="139" /> <referenceRange& gt; <observationRange> <text>134-145</text> </observationRange> </referenceRange> &lt ;/observation> </component> <component> < observation moodCode="EVN" classCode="OBS"> < templateId root="2.16.840.1.233090.10.20.22.4.2" /> < id nullFlavor="NA" /> <code codeSystem="local&quot ; code="K" displayName="Potassium" /> < statusCode code="completed" /> <effectiveTime value=& quot;803163651381" /> <value unit="MMOLL" xsi:type ="PQ" value="4.3" /> <referenceRange> <observationRange> <text>3.6-5.0</text> </observationRange> </referenceRange> &lt ;/observation> </component> <component> < observation moodCode="EVN" classCode="OBS"> < templateId root="2.16.840.1.437724.10.20.22.4.2" /> < id nullFlavor="NA" /> <code codeSystem="local&quot ; code="CL" displayName="Chloride" /> < statusCode code="completed" /> <effectiveTime value=& quot;934851335895" /> <value unit="MMOLL" xsi:type ="PQ" value="97" /> <interpretationCode codeSystem="local" code="L" /> < referenceRange> <observationRange> <text>98-107 </text> </observationRange> </referenceRange& gt; </observation> </component> <component> <observation moodCode="EVN" classCode="OBS"> &lt ;templateId root="2.16.840.1.146518.10.20.22.4.2" /> < id nullFlavor="NA" /> <code codeSystem="local&quot ; code="CO2" displayName="CO2" /> < statusCode code="completed" /> <effectiveTime value=& quot;301691937330" /> <value unit="MMOLL" xsi:type ="PQ" value="30" /> <referenceRange> <observationRange> <text>22-30</text> </observationRange> </referenceRange> </ observation> </component> <component> < observation moodCode="EVN" classCode="OBS"> < templateId root="2.16.840.1.394983.10..22.4.2" /> < id nullFlavor="NA" /> <code codeSystem="local&quot ; code="GLU" displayName="Glucose" /> <statusCode code="completed" /> <effectiveTime value=" 725312396201" /> <value unit="MG/DL" xsi:type=& quot;PQ" value="99" /> <referenceRange> <observationRange> <text>75-110</text> </observationRange> </referenceRange> </ observation> </component> <component> < observation moodCode="EVN" classCode="OBS"> < templateId root="2.16.840.1.066039.10.20.22.4.2" /> < id nullFlavor="NA" /> <code codeSystem="local&quot ; code="BUN" displayName="BUN" /> < statusCode code="completed" /> <effectiveTime value=& quot;413758743884" /> <value unit="MG/DL" xsi:type ="PQ" value="17" /> <referenceRange> <observationRange> <text>9-20</text> </observationRange> </referenceRange> </ observation> </component> <component> < observation moodCode="EVN" classCode="OBS"> < templateId root="2.16.840.1.952074.10.20.22.4.2" /> < id nullFlavor="NA" /> <code codeSystem="local&quot ; code="CREAT" displayName="Creatinine" /> < statusCode code="completed" /> <effectiveTime value=&quot ;294398366505" /> <value unit="MG/DL" xsi:type=& quot;PQ" value=".9" /> <referenceRange> <observationRange> <text>0.8-1.7</text> </observationRange> </referenceRange> </ observation> </component> <component> < observation moodCode="EVN" classCode="OBS"> < templateId root="2.16.840.1.659260.10.20.22.4.2" /> < id nullFlavor="NA" /> <code codeSystem="local&quot ; code="CA" displayName="Calcium" /> < statusCode code="completed" /> <effectiveTimevalue=& quot;692265170209" /> <value unit="MG/DL" xsi:type ="PQ" value="9.5" /> <referenceRange> <observationRange> <text>8.4-10.2</text> </observationRange> </referenceRange> </ observation> </component> <component> < observation moodCode="EVN" classCode="OBS"> < templateId root="2.16.840.1.748633.10.20.22.4.2" /> < id nullFlavor="NA" /> <code codeSystem="local&quot ; code="TBIL" displayName="T Bili" /> <statusCode code="completed" /> <effectiveTime value=" 281037932977" /> <value unit="MG/DL" xsi:type=& quot;PQ" value=".3"/> <referenceRange> <observationRange> <text>0.2-1.3</text> </observationRange> </referenceRange> </ observation> </component> <component> < observation moodCode="EVN" classCode="OBS"> < templateId root="2.16.840.1.818688.10.20.22.4.2" /> < id nullFlavor="NA" /> <code codeSystem="local&quot ; code="TP" displayName="T. Protein" /> < statusCode code="completed" /> <effectiveTime value=& quot;060758443322" /><value unit="G/DL" xsi:type="PQ& quot; value="7.2" /> <referenceRange> &lt ;observationRange> <text>6.3-8.2</text> </ observationRange> </referenceRange> </observation&gt ; </component> <component> <observation moodCode ="EVN" classCode="OBS"> <templateId root=& quot;2.16.840.1.764658.10.20.22.4.2" /> <id nullFlavor="NA& quot; /> <code codeSystem="local" code="AG" displayName="A/G Ratio" /> <statusCode code=" completed" /> <effectiveTime value="864087981267" /> <value unit="RATIO" xsi:type="PQ" value=& quot;1.3" /> <referenceRange> <observationRange> <text /> </observationRange> </ referenceRange> </observation> </component> < component> <observation moodCode="EVN" classCode="OBS& quot;> <templateIdroot="2.16.840.1.238608.10.20.22.4.2&quot ; /> <id nullFlavor="NA" /> <code codeSystem="local" code="ALB" displayName="Albumin&quot ;/> <statusCode code="completed" /> < effectiveTime value="514562123530" /> <value unit=&quot ;G/DL" xsi:type="PQ" value="4.1" /> < referenceRange> <observationRange> <text> 3.5-5.0</text> </observationRange> </ referenceRange> </observation> </component> < component> <observation moodCode="EVN" classCode=" OBS"> <templateId root="2.16.840.1.214746.10.20.22.4.2& quot; /> <id nullFlavor="NA" /> <code codeSystem="local" code="ALP" displayName="Alk Phos& quot; /> <statusCode code="completed" /> & lt;effectiveTime value="664638619074" /> <value unit=& quot;U/L" xsi:type="PQ" value="84" /> < referenceRange> <observationRange> <text> 38-126</text> </observationRange> </ referenceRange> </observation> </component> < component> <observation moodCode="EVN" classCode=" OBS"> <templateId root="2.16.840.1.416779.10.20.22.4.2& quot; /> <id nullFlavor="NA" /> <code codeSystem="local" code="ALT" displayName="ALT" /& gt; <statusCode code="completed" /> < effectiveTime value="363263698386" /> <value unit=&quot ;U/L" xsi:type="PQ" value="43" /> < referenceRange> <observationRange> <text>11-66< /text> </observationRange> </referenceRange> </observation> </component> <component> <observation moodCode="EVN" classCode="OBS"> < templateId root="2.16.840.1.098051.10.20.22.4.2" /> < id nullFlavor="NA" /> <code codeSystem="local&quot ; code="AST" displayName="AST" /> < statusCode code="completed" /> <effectiveTime value=& quot;175783255069" /> <value unit="U/L" xsi:type=& quot;PQ" value="50" /> <interpretationCode codeSystem="local" code="H" /> < referenceRange> <observationRange> <text> 14-36</text> </observationRange> </ referenceRange></observation> </component> </organizer > </entry> <entry><organizer moodCode="EVN" classCode="BATTERY"> <templateId root=" 2.16.840.1.263090.10.20.22.4.1" /> <id nullFlavor="NA&quot ; /> <code codeSystem="local" code="GLUMON" displayName="GLUCOSE (POC)" /> <statusCode code=" completed" /> <component> <observation moodCode=& quot;EVN" classCode="OBS"> <templateId root=" 2.16.840.1.227291.10.20.22.4.2" /> <id nullFlavor="NA& quot; /> <code codeSystem="local" code="GLUMON& quot; displayName="GLUCOSE (POC)" /> <statusCode code=& quot;completed" /> <effectiveTime value="735586681783& quot; /> <value unit="mg/dL" xsi:type="PQ" value="93" /> <referenceRange> < observationRange> <text>70-99</text> < /observationRange> </referenceRange> </observation& gt; </component> </organizer> </entry> <entry&gt ; <organizer moodCode="EVN" classCode="BATTERY"> <templateId root="2.16.840.1.348822.10.20.22.4.1" /> & lt;id nullFlavor="NA" /> <code codeSystem="local&quot ; code="CBC" displayName="CBC" /> <statusCode code="completed" /> <component> <observation moodCode="EVN" classCode="OBS"> <templateId root="2.16.840.1.559981.10.20.22.4.2" /> <id nullFlavor ="NA" /> <code codeSystem="local" code=" MCH" displayName="MEAN CELL HGB" /> <statusCode code="completed" /> <effectiveTime value=" 827976759646" /> <value unit="pg" xsi:type=" PQ" value="30.5" /> <referenceRange> <observationRange> <text>27.0-33.0</text></ observationRange> </referenceRange> </observation&gt ; </component> <component> <observation moodCode ="EVN" classCode="OBS"> <templateId root=& quot;2.16.840.1.612965.10.20.22.4.2" /> <id nullFlavor=&quot ;NA" /> <code codeSystem="local" code="MCHC& quot; displayName="MEAN CELL HGB CONCENTRATION" /> < statusCode code="completed" /> <effectiveTime value=& quot;213291688789" /> <value unit="g/dL" xsi:type= "PQ" value="34.9" /> <referenceRange> <observationRange> <text>32.0-37.0</text&gt ; </observationRange> </referenceRange> & lt;/observation> </component> <component> < observation moodCode="EVN" classCode="OBS"> < templateId root="2.16.840.1.744761.10.20.22.4.2" /> < id nullFlavor="NA" /> <code codeSystem="local&quot ; code="MCV" displayName="MEAN CELL VOLUME" /> & lt;statusCode code="completed" /> <effectiveTime value= "597491419094" /> <value unit="fl" xsi:type=& quot;PQ" value="87.3" /> <referenceRange> < observationRange> <text>80.0-100.0</text> </observationRange> </referenceRange> </ observation> </component><component> <observation moodCode="EVN" classCode="OBS"> <templateId root=& quot;2.16.840.1.377973.10.20.22.4.2" /> <id nullFlavor=&quot ;NA" /> <code codeSystem="local" code="RBC& quot; displayName="RED BLOOD CELL" /> <statusCode code= "completed" /> <effectiveTime value="485311808092& quot; /> <value unit="m/cumm" xsi:type="PQ" value="5.05" /> <referenceRange> < observationRange> <text>4.00-6.00</text> </observationRange> </referenceRange> </observation& gt; </component> <component> <observation moodCode="EVN" classCode="OBS"> <templateId root="2.16.840.1.959727.10.20.22.4.2" /> <id nullFlavor ="NA" /> <code codeSystem="local" code=" RDW" displayName="RED CELL DISTRIBUTION WIDTH" /> &lt ;statusCode code="completed" /> <effectiveTime value=& quot;712864431692" /> <value unit="%" xsi: type="PQ" value="12.4" /> <referenceRange&gt ; <observationRange> <text>11.0-15.6</ text> </observationRange> </referenceRange> </observation> </component> <component> <observation moodCode="EVN" classCode="OBS"> <templateId root="2.16.840.1.988747.10.20.22.4.2" /> <id nullFlavor="NA" /> <code codeSystem=" local" code="WBC" displayName="WHITE BLOOD CELL" /> <statusCode code="completed" /> < effectiveTime value="752610091284" /> <value unit=&quot ;k/cumm" xsi:type="PQ" value="5.9" /> < referenceRange> <observationRange> <text> 5.0-10.0</text> </observationRange> </ referenceRange> </observation> </component> < component> <observation moodCode="EVN" classCode="OBS&quot ;> <templateId root="2.16.840.1.535220.10.20.22.4.2" /& gt; <id nullFlavor="NA" /> <code codeSystem=& quot;local" code="HGBT" displayName="HEMOGLOBIN"/> <statusCode code="completed" /> < effectiveTime value="839728709544" /> <value unit=&quot ;gm/dL" xsi:type="PQ" value="15.4" /> < referenceRange> <observationRange><text>14.0-18.0</ text> </observationRange> </referenceRange> </observation> </component> <component> <observation moodCode="EVN" classCode="OBS"> <templateId root="2.16.840.1.661140.10.20.22.4.2" /> <id nullFlavor="NA" /> <code codeSystem=" local" code="HCTT" displayName="HEMATOCRIT" /> <statusCode code="completed" /> <effectiveTime value="642549785026" /> <value unit="%& quot; xsi:type="PQ" value="44.1" /> < referenceRange> <observationRange> <text> 40.0-54.0</text> </observationRange> </ referenceRange> </observation> </component> < component> <observation moodCode="EVN" classCode=" OBS"> <templateId root="2.16.840.1.814962.10.20.22.4.2& quot; /> <id nullFlavor="NA" /> <code codeSystem="local" code="PLT" displayName="PLATELET COUNT" /> <statusCode code="completed" /> <effectiveTime value="950234556765" /> <value unit="k/cumm" xsi:type="PQ" value="182" /> &lt ;referenceRange> <observationRange> <text&gt ;150-400</text> </observationRange> </ referenceRange> </observation> </component> </ organizer> </entry> <entry> <organizer moodCode="EVN " classCode="BATTERY"> <templateId root=" 2.16.840.1.743392.10.20.22.4.1" /> <id nullFlavor="NA&quot ; /> <code codeSystem="local" code="GLUMON" displayName="GLUCOSE (POC)" /> <statusCode code=" completed" /> <component> <observation moodCode=& quot;EVN" classCode="OBS"> <templateId root=" 2.16.840.1.838969.10.20.22.4.2" /> <id nullFlavor="NA& quot; /> <code codeSystem="local" code="GLUMON& quot; displayName="GLUCOSE (POC)" /> <statusCode code=& quot;completed" /> <effectiveTime value="906455156183& quot; /> <value unit="mg/dL" xsi:type="PQ" value=&quot ;96" /> <referenceRange> <observationRange& gt; <text>70-99</text> </observationRange> </referenceRange> </observation> </component > </organizer> </entry> <entry> <organizer moodCode="EVN" classCode="BATTERY"> <templateId root="2.16.840.1.808643.10.20.22.4.1" /> <id nullFlavor=& quot;NA" /> <code codeSystem="local" code="GLUMON " displayName="GLUCOSE (POC)" /> <statusCode code=& quot;completed" /> <component> <observation moodCode="EVN" classCode="OBS"> <templateId root="2.16.840.1.058926.10.20.22.4.2" /> <id nullFlavor= "NA" /> <code codeSystem="local" code=" GLUMON" displayName="GLUCOSE (POC)" /> < statusCode code="completed" /> <effectiveTime value=& quot;936563414882" /> <valueunit="mg/dL" xsi:type= "PQ" value="95" /> <referenceRange> <observationRange> <text>70-99</text> </observationRange> </referenceRange> </ observation> </component> </organizer> </entry> & lt;entry> <organizer moodCode="EVN" classCode="BATTERY& quot;> <templateId root="2.16.840.1.978495.10.20.22.4.1"/& gt; <id nullFlavor="NA" /> <code codeSystem=" local" code="UA" displayName="URINALYSIS, ROUTINE" /&gt ; <statusCode code="completed" /> <component> <observation moodCode="EVN" classCode="OBS"> <templateId root="2.16.840.1.223168.10.20.22.4.2" />< id nullFlavor="NA" /> <code codeSystem="local&quot ; code="LEUESU" displayName="UA LEUKOCYTE ESTERASE DIPSTICK&quot ; /> <statusCode code="completed" /> < effectiveTime value="154308889814" /> <value unit=&quot ;" xsi:type="PQ" value="NEGATIVE" /> < referenceRange> <observationRange> <text> NEGATIVE</text> </observationRange> </ referenceRange> </observation> </component> < component> <observation moodCode="EVN" classCode=" OBS"> <templateId root="2.16.840.1.849616.10.20.22.4.2& quot; /> <id nullFlavor="NA" /> <code codeSystem="local" code="NITRIU" displayName="UA NITRITE DIPSTICK" /> <statusCode code="completed" /> <effectiveTime value="821174611888" /> & lt;valueunit="" xsi:type="PQ" value="NEGATIVE" /& gt; <referenceRange> <observationRange> <text>NEGATIVE</text> </observationRange> </referenceRange> </observation> </component& gt; <component> <observation moodCode="EVN" classCode="OBS"> <templateId root=" 2.16.840.1.953904.10.20.22.4.2" /> <id nullFlavor="NA& quot; /> <code codeSystem="local" code="PROTEIU& quot; displayName="UA PROTEIN DIPSTICK" /> <statusCode code="completed" /> <effectiveTime value=" 375922336825" /> <value unit="" xsi:type="PQ& quot; value="NEGATIVE" /> <referenceRange> <observationRange> <text>NEGATIVE</text> </observationRange> </referenceRange> </ observation> </component> <component> < observation moodCode="EVN" classCode="OBS"> < templateId root="2.16.840.1.977765.10.20.22.4.2" /> < id nullFlavor="NA" /> <code codeSystem="local&quot ; code="DGLUU" displayName="UA GLUCOSE DIPSTICK" /> <statusCode code="completed" /> <effectiveTime value="879038713113" /> <value unit="" xsi: type="PQ" value="NEGATIVE" /> <referenceRange > <observationRange> <text>NEGATIVE</text> </observationRange> </referenceRange> </ observation> </component> <component> < observation moodCode="EVN" classCode="OBS"> < templateId root="2.16.840.1.204341.10..22.4.2" /> < id nullFlavor="NA" /> <code codeSystem="local&quot ; code="KETONU" displayName="UA KETONE DIPSTICK" /> <statusCode code="completed" /> <effectiveTime value=& quot;783436127380" /> <value unit="" xsi:type=& quot;PQ" value="3+" /> <interpretationCode codeSystem="local" code="*" /> < referenceRange> <observationRange> <text> NEGATIVE</text> </observationRange> </ referenceRange> </observation> </component> < component> <observation moodCode="EVN" classCode=" OBS"> <templateId root="2.16.840.1.496187.10.20.22.4.2& quot; /> <id nullFlavor="NA" /> <code codeSystem="local" code="UROBILU" displayName="UA UROBILINOGEN DIPSTICK" /> <statusCode code="completed& quot; /> <effectiveTime value="109572953592" /> <value unit="" xsi:type="PQ" value="NORMAL& quot; /> <referenceRange> <observationRange> <text>NORMAL</text> </observationRange> </referenceRange> </observation> </component> <component> <observation moodCode="EVN" classCode="OBS"> <templateId root=" 2.16.840.1.819012.10.20.22.4.2" /> <id nullFlavor="NA& quot; /> <codecodeSystem="local" code="BILU" displayName="UA BILIRUBIN DIPSTICK" /> <statusCode code ="completed" /> <effectiveTime value="450027109755 " /> <value unit="" xsi:type="PQ" value= "NEGATIVE" /> <referenceRange> < observationRange> <text>NEGATIVE</text> & lt;/observationRange> </referenceRange> </observation& gt; </component> <component> <observation moodCode="EVN" classCode="OBS"> <templateId root="2.16.840.1.297832.10..22.4.2" /> <id nullFlavor ="NA" /> <code codeSystem="local" code=" BHAKTI" displayName="UA BLOOD DIPSTICK" /> < statusCode code="completed" /> <effectiveTime value=& quot;511590621127" /> <value unit="" xsi:type=& quot;PQ" value="NEGATIVE" /> <referenceRange> <observationRange> <text>NEGATIVE</text& gt; </observationRange> </referenceRange> </observation> </component> <component> &lt ;observation moodCode="EVN" classCode="OBS"> &lt ;templateId root="2.16.840.1.208334.10..22.4.2" /> < id nullFlavor="NA" /> <code codeSystem="local&quot ; code="UAVOL" displayName="UA VOLUME FOR EXAM" /> <statusCode code="completed" /> <effectiveTime value="558753957812" /> <value unit="mL" xsi: type="PQ" value="12.0" /> <referenceRange&gt ; <observationRange> <text>(12mL STD)</ text> </observationRange> </referenceRange> </observation> </component> <component> <observation moodCode="EVN" classCode="OBS"> <templateId root="216.840.1.942699.10.20.22.4.2" /> <id nullFlavor="NA" /> <code codeSystem=" local" code="SPGRU" displayName="UA SPECIFIC GRAVITY" / > <statusCode code="completed" /> < effectiveTime value="197555264433" /> <value unit=&quot ;" xsi:type="PQ" value="1.021" /> < referenceRange> <observationRange> <text> 1.015-1.025</text> </observationRange> </ referenceRange> </observation> </component> < component> <observation moodCode="EVN" classCode=" OBS"> <templateId root="2.16.840.1.945178.10.20.22.4.2& quot; /> <id nullFlavor="NA" /> <code codeSystem="local" code="SCOUT" displayName="UR PH" /> <statusCode code="completed" /> < effectiveTime value="169151451414" /> <value unit=&quot ;" xsi:type="PQ" value="6.0" /> < referenceRange> <observationRange> <text> 5.0-7.0</text> </observationRange> </ referenceRange> </observation> </component> </ organizer> </entry> <entry> <organizer moodCode="EVN " classCode="BATTERY"> <templateId root=" 2.16.840.1.728426.10.20.22.4.1" /> <idnullFlavor="NA" /> <code codeSystem="local" code="GLUMON" displayName="GLUCOSE (POC)" /> <statusCode code=" completed" /> <component> <observation moodCode=& quot;EVN" classCode="OBS"> <templateId root=" 2.16.840.1.985313.10.20.22.4.2" /> <id nullFlavor="NA& quot; /> <code codeSystem="local" code="GLUMON& quot; displayName="GLUCOSE (POC)" /> <statusCode code=& quot;completed" /> <effectiveTime value="211097714510& quot; /> <value unit="mg/dL" xsi:type="PQ" value="109" /> <interpretationCode codeSystem=" local" code="*" /> <referenceRange> <observationRange> <text>70-99</text> &lt ;/observationRange> </referenceRange> </observation& gt; </component> </organizer> </entry> <entry> <organizer moodCode="EVN" classCode="BATTERY"> <templateId root="2.16.840.1.160966.10.20.22.4.1" /> &lt ;id nullFlavor="NA" /> <code codeSystem="local" code="CK" displayName="CREATINE KINASE (CK/CPK)" /> <statusCode code="completed" /> <component> < observation moodCode="EVN" classCode="OBS"> < templateIdroot="2.16.840.1.457021.10.20.22.4.2" /> <id nullFlavor="NA" /> <code codeSystem="local" code="CK" displayName="CREATINE KINASE (CK/CPK)" /> <statusCode code="completed" /> <effectiveTime value="082289842863" /> <value unit="Units/L&quot ; xsi:type="PQ" value="118" /> < referenceRange> <observationRange> <text> < 309</text> </observationRange></ referenceRange> </observation> </component> </ organizer> </entry> <entry> <organizer moodCode="EVN " classCode="BATTERY"> <templateId root=" 2.16.840.1.372106.10.20.22.4.1" /> <id nullFlavor="NA&quot ; /> <code codeSystem="local" code="CKMB" displayName="CK MB" /> <statusCode code="completed& quot; /> <component> <observation moodCode="EVN" classCode="OBS"> <templateId root=" 2.16.840.1.916809.10..22.4.2" /> <id nullFlavor="NA& quot; /> <code codeSystem="local" code="CKMB" displayName="CK MB" /> <statusCode code="completed " /> <effectiveTime value="818989302647" /> <value unit="ng/mL" xsi:type="PQ" value="1.9& quot; /> <referenceRange> <observationRange> <text>< 4.0</text> </ observationRange> </referenceRange> </observation&gt ; </component> </organizer> </entry> <entry> <organizer moodCode="EVN" classCode="BATTERY"> <templateIdroot="2.16.840.1.179951.10.20.22.4.1" /> < id nullFlavor="NA" /> <code codeSystem="local" code=& quot;TROPI" displayName="TROPONIN I" /> <statusCode code="completed" /> <component> <observation moodCode="EVN" classCode="OBS"> <templateId root="2.16.840.1.649089.10.20.22.4.2" /> <id nullFlavor ="NA" /> <code codeSystem="local" code=" TROPI" displayName="TROPONIN I" /> <statusCode code="completed" /> <effectiveTime value=" 508180247340" /> <value unit="ng/mL" xsi:type=& quot;PQ" value="< 0.02" /> <referenceRange& gt; <observationRange> <text>< 0.07& lt;/text> </observationRange> </referenceRange& gt; </observation> </component> </organizer> & lt;/entry> <entry> <organizer moodCode="EVN" classCode ="BATTERY"> <templateIdroot=" 2.16.840.1.185420.10.20.22.4.1" /> <id nullFlavor="NA&quot ; /> <code codeSystem="local" code="GLUMON" displayName="GLUCOSE (POC)" /> <statusCode code=" completed" /> <component> <observation moodCode=& quot;EVN" classCode="OBS"> <templateId root=" 216.840.1.990870.10.20.22.4.2" /> <id nullFlavor="NA& quot; /> <code codeSystem="local" code="GLUMON& quot; displayName="GLUCOSE (POC)" /> <statusCode code=& quot;completed" /> <effectiveTime value="633737557535& quot; /> <value unit="mg/dL" xsi:type="PQ" value="150" /> <interpretationCode codeSystem=" local" code="*" /> <referenceRange> < observationRange> <text>70-99</text> < /observationRange> </referenceRange> </observation& gt; </component> </organizer> </entry> <entry&gt ; <organizer moodCode="EVN" classCode="BATTERY"> <templateId root="2.16.840.1.250337.10.20.22.4.1" /> & lt;id nullFlavor="NA" /> <code codeSystem="local&quot ; code="GLUMON" displayName="GLUCOSE (POC)" /> < statusCode code="completed" /> <component> < observation moodCode="EVN" classCode="OBS"> < templateId root="2.16.840.1.583452.10.20.22.4.2" /> < id nullFlavor="NA" /> <code codeSystem="local&quot ; code="GLUMON" displayName="GLUCOSE (POC)" /> & lt;statusCode code="completed" /> <effectiveTime value= "516310364841" /> <value unit="mg/dL" xsi:type=" PQ" value="183" /> <interpretationCode codeSystem= "local" code="*" /> <referenceRange> <observationRange> <text>70-99</text> </observationRange> </referenceRange> </ observation> </component> </organizer> </entry> & lt;entry> <organizer moodCode="EVN" classCode="BATTERY& quot;> <templateId root="2.16.840.1.366319.10.20.22.4.1" /& gt; <id nullFlavor="NA" /> <code codeSystem=" local" code="METAB" displayName="METABOLIC PANEL, BASIC&quot ; /> <statusCode code="completed" /> <component& gt; <observation moodCode="EVN" classCode="OBS"&gt ; <templateId root="2.16.840.1.670188.10.20.22.4.2" /> <id nullFlavor="NA" /> <code codeSystem=" local" code="K" displayName="POTASSIUM" /> <statusCode code="completed" /> <effectiveTime value ="404927047686" /> <value unit="mmol/L" xsi: type="PQ" value="4.5" /> <referenceRange> <observationRange> <text>3.5-5.3</text> </observationRange> </referenceRange> </ observation> </component><component> <observation moodCode="EVN" classCode="OBS"> <templateId root=& quot;2.16.840.1.771128.10.20.22.4.2" /> <id nullFlavor=&quot ;NA" /> <code codeSystem="local" code="eGFR& quot; displayName="EST GFR (MDRD)" /> <statusCode code= "completed" /> <effectiveTime value="848530112499& quot; /> <value unit="mL/min" xsi:type="PQ" value="47" /> <interpretationCode codeSystem=" local" code="*" /> <referenceRange> <observationRange> <text>> 59</text> </observationRange> </referenceRange> </ observation> </component> <component> < observation moodCode="EVN" classCode="OBS"> < templateId root="2.16.840.1.548802.10.20.22.4.2" /> < id nullFlavor="NA" /> <code codeSystem="local" code=& quot;GAP" displayName="ANION GAP" /> <statusCode code="completed" /> <effectiveTime value=" 262978998037" /> <value unit="mmol/L" xsi:type=& quot;PQ" value="8" /> <referenceRange> <observationRange> <text>5-15</text> </observationRange> </referenceRange> </ observation> </component> <component> < observation moodCode="EVN" classCode="OBS"> < templateId root="2.16.840.1.365971.10..22.4.2" /> < id nullFlavor="NA" /> <code codeSystem="local&quot ; code="eCrCl" displayName="EST CrCl (CG)" /> & lt;statusCode code="completed" /> <effectiveTime value= "171748911237" /> <value unit="mL/min" xsi: type="PQ" value="52" /> <interpretationCode codeSystem="local" code="*" /> < referenceRange> <observationRange> <text> > 59</text> </observationRange> </ referenceRange> </observation> </component> < component> <observation moodCode="EVN" classCode=" OBS"> <templateId root="2.16.840.1.520998.10.20.22.4.2& quot; /> <id nullFlavor="NA" /> <code codeSystem ="local" code="GLU" displayName="GLUCOSE" /> <statusCode code="completed" /> < effectiveTime value="200069907317" /> <value unit=&quot ;mg/dL" xsi:type="PQ" value="143" /> < interpretationCode codeSystem="local" code="*" /> <referenceRange> <observationRange> < text>70-99</text> </observationRange></ referenceRange> </observation> </component> < component> <observation moodCode="EVN" classCode="OBS& quot;> <templateId root="2.16.840.1.863915.10.20.22.4.2&quot ; /> <id nullFlavor="NA" /> <code codeSystem="local" code="CA" displayName="CALCIUM&quot ; /> <statusCode code="completed" /> < effectiveTime value="[id number]" /> <value unit=&quot ;mg/dL" xsi:type="PQ" value="8.5" /> < referenceRange> <observationRange> <text> 8.5-10.1</text> </observationRange> </ referenceRange> </observation> </component> < component> <observation moodCode="EVN" classCode=" OBS"> <templateId root="[id number]& quot; /> <id nullFlavor="NA" /> <code codeSystem="local" code="BUN" displayName="BLOOD UREA NITROGEN" /> <statusCode code="completed" /> & lt;effectiveTime value="[id number]" /> <value unit=& quot;mg/dL" xsi:type="PQ" value="16" /> &lt ;referenceRange> <observationRange> <text&gt ;7-20</text> </observationRange> </ referenceRange> </observation> </component> < component> <observation moodCode="EVN" classCode=" OBS"> <templateId root="2.16.840.1.044548.10.20.22.4.2& quot; /> <id nullFlavor="NA" /> <code codeSystem="local" code="CREAT" displayName="CREATININE " /> <statusCode code="completed" /> & lt;effectiveTime value="575889806541" /> <value unit=& quot;mg/dL" xsi:type="PQ" value="1.6" /> & lt;interpretationCode codeSystem="local" code="*" /> <referenceRange> <observationRange> &lt ;text>0.8-1.3</text> </observationRange> < /referenceRange> </observation> </component> &lt ;component> <observation moodCode="EVN" classCode=" OBS"> <templateId root="2.16.840.1.557993.10.20.22.4.2& quot; /> <id nullFlavor="NA" /> <code codeSystem="local" code="NA" displayName="SODIUM" /> <statusCode code="completed" /> < effectiveTime value="711281181676" /> <value unit=&quot ;mmol/L" xsi:type="PQ" value="139" /> < referenceRange> <observationRange> <text> 135-148</text> </observationRange> </referenceRange& gt; </observation> </component> <component> <observation moodCode="EVN" classCode="OBS"> <templateId root="2.16.840.1.030281.10..22.4.2" /> <id nullFlavor="NA" /> <code codeSystem=" local" code="CL" displayName="CHLORIDE" /> <statusCode code="completed" /> <effectiveTime value ="037263912537" /> <value unit="mmol/L" xsi: type="PQ" value="105" /> <referenceRange> <observationRange> <text>98-110</text> </observationRange> </referenceRange> </ observation> </component> <component> < observation moodCode="EVN" classCode="OBS"> < templateId root="2.16.840.1.836154.10.20.22.4.2" /> < id nullFlavor="NA" /> <code codeSystem="local&quot ; code="CO2" displayName="CARBON DIOXIDE" /> &lt ;statusCode code="completed" /> <effectiveTime value=& quot;649866264313" /> <value unit="mmol/L" xsi: type="PQ" value="26" /> <referenceRange> <observationRange> <text>21-32</text> </observationRange> </referenceRange> & lt;/observation> </component> </organizer> </entry&gt ; <entry> <organizer moodCode="EVN" classCode=" BATTERY"> <templateId root="2.16.840.1.949336.10.20.22.4.1& quot; /> <id nullFlavor="NA" /> <code codeSystem ="local" code="CBC" displayName="CBC" /> & lt;statusCode code="completed" /> <component> &lt ;observation moodCode="EVN" classCode="OBS"> &lt ;templateId root="2.16.840.1.731921.10.20.22.4.2"/> < id nullFlavor="NA" /> <code codeSystem="local&quot ;code="MCH" displayName="MEAN CELL HGB" /> < statusCode code="completed" /> <effectiveTime value=& quot;133526868226" /> <value unit="pg" xsi:type=& quot;PQ" value="30.2" /> <referenceRange> <observationRange> <text>27.0-33.0</text> </observationRange> </referenceRange> </ observation> </component> <component> < observation moodCode="EVN" classCode="OBS"> < templateId root="2.16.840.1.216647.10.20.22.4.2" /> < id nullFlavor="NA" /> <code codeSystem="local&quot ; code="MCHC" displayName="MEAN CELL HGB CONCENTRATION" /&gt ; <statusCode code="completed" /> < effectiveTime value="577179937017" /> <valueunit=" g/dL" xsi:type="PQ" value="33.7" /> < referenceRange> <observationRange> <text> 32.0-37.0</text></observationRange> </referenceRange&gt ; </observation> </component> <component> <observation moodCode="EVN" classCode="OBS"> <templateId root="2.16.840.1.979913.10.20.22.4.2" /> <id nullFlavor="NA" /> <code codeSystem=" local" code="MCV" displayName="MEAN CELL VOLUME" /> <statusCode code="completed" /> < effectiveTime value="112466872913" /> <value unit=&quot ;fl" xsi:type="PQ" value="89.8" /> < referenceRange> <observationRange> <text>80.0-100.0 </text> </observationRange> </referenceRange& gt; </observation> </component> <component> <observation moodCode="EVN" classCode="OBS"> &lt ;templateId root="2.16.840.1.961041.10.20.22.4.2" /> < id nullFlavor="NA" /> <code codeSystem="local&quot ; code="RBC" displayName="RED BLOOD CELL" /> &lt ;statusCode code="completed" /> <effectiveTime value=& quot;104014582948" /> <value unit="m/cumm" xsi: type="PQ" value="4.60" /> <referenceRange&gt ; <observationRange> <text>4.00-6.00</ text> </observationRange> </referenceRange> </observation> </component> <component> <observation moodCode="EVN" classCode="OBS"> <templateId root="2.16.840.1.795287.10.20.22.4.2" /> & lt;id nullFlavor="NA" /> <code codeSystem="local& quot; code="RDW" displayName="RED CELL DISTRIBUTION WIDTH" / > <statusCode code="completed" /> < effectiveTime value="239067841927" /> <value unit=&quot ;%" xsi:type="PQ" value="12.8" /> & lt;referenceRange> <observationRange> <text& gt;11.0-15.6</text> </observationRange> </ referenceRange> </observation> </component> < component> <observation moodCode="EVN" classCode=" OBS"> <templateId root="2.16.840.1.978965.10.20.22.4.2& quot; /> <id nullFlavor="NA" /> <code codeSystem="local" code="WBC" displayName="WHITE BLOOD CELL" /> <statusCode code="completed" /> <effectiveTime value="340016554108" /> <value unit="k/cumm" xsi:type="PQ" value="15.0" /> <interpretationCode codeSystem="local"code="*" /& gt; <referenceRange> <observationRange> < text>5.0-10.0</text> </observationRange> < /referenceRange> </observation> </component> &lt ;component> <observation moodCode="EVN" classCode=" OBS"> <templateId root="2.16.840.1.292639.10.20.22.4.2& quot; /> <id nullFlavor="NA" /> <code codeSystem="local" code="HGBT" displayName="HEMOGLOBIN& quot; /> <statusCode code="completed" /> < effectiveTime value="141593317924" /> <value unit=&quot ;gm/dL" xsi:type="PQ" value="13.9" /> < interpretationCode codeSystem="local" code="*" /> < referenceRange> <observationRange> <text> 14.0-18.0</text> </observationRange> </ referenceRange> </observation> </component> < component> <observation moodCode="EVN" classCode=" OBS"> <templateId root="2.16.840.1.756124.10.20.22.4.2& quot; /> <id nullFlavor="NA" /> <code codeSystem="local" code="HCTT" displayName="HEMATOCRIT& quot; /> <statusCode code="completed" /> & lt;effectiveTime value="139555240152" /> <valueunit=& quot;%" xsi:type="PQ" value="41.3" /> <referenceRange> <observationRange> < text>40.0-54.0</text> </observationRange> </ referenceRange> </observation> </component> < component> <observation moodCode="EVN" classCode=" OBS"> <templateId root="2.16.840.1.306580.10.20.22.4.2& quot; /> <id nullFlavor="NA" /> <code codeSystem= "local" code="PLT" displayName="PLATELET COUNT" /& gt; <statusCode code="completed" /> < effectiveTime value="135294120526" /> <value unit=&quot ;k/cumm" xsi:type="PQ" value="209" /> < referenceRange> <observationRange> <text>150- 400</text> </observationRange> </ referenceRange> </observation> </component> </ organizer> </entry> <entry> <organizer moodCode="EVN " classCode="BATTERY"> <templateId root=" 2.16.840.1.439382.10.20.22.4.1" /> <id nullFlavor="NA" /> <code codeSystem="local" code="GLUMON" displayName="GLUCOSE (POC)" /> <statusCode code=" completed"/> <component> <observation moodCode=& quot;EVN" classCode="OBS"> <templateId root=" 2.16.840.1.513907.10.20.22.4.2" /> <id nullFlavor="NA& quot; /> <code codeSystem="local" code="GLUMON& quot; displayName="GLUCOSE (POC)" /> <statusCode code=& quot;completed" /> <effectiveTime value="709693041348& quot; /> <value unit="mg/dL" xsi:type="PQ" value="150" /> <interpretationCode codeSystem=" local" code="*" /> <referenceRange> <observationRange> <text>70-99</text> </observationRange> </referenceRange> </ observation> </component> </organizer> </entry> & lt;entry> <organizer moodCode="EVN" classCode="BATTERY& quot;> <templateId root="2.16.840.1.919096.10.20.22.4.1" /& gt; <id nullFlavor="NA" /> <code codeSystem=" local" code="GLUMON" displayName="GLUCOSE (POC)" /> <statusCode code="completed" /> <component> <observation moodCode="EVN" classCode="OBS"> <templateId root="2.16.840.1.462929.10.20.22.4.2" /> <id nullFlavor="NA"/> <code codeSystem=" local" code="GLUMON" displayName="GLUCOSE (POC)" /> <statusCode code="completed" /> < effectiveTime value="607306806618" /> <value unit=&quot ;mg/dL" xsi:type="PQ" value="129" /> < interpretationCode codeSystem="local" code="*" /> <referenceRange> <observationRange> < text>70-99</text> </observationRange> </ referenceRange> </observation> </component> </ organizer> </entry> <entry> <organizer moodCode="EVN " classCode="BATTERY"> <templateId root=" 2.16.840.1.365214.10.20.22.4.1" /> <id nullFlavor="NA&quot ; /> <code codeSystem="local" code="HGB" displayName="HEMOGLOBIN" /> <statusCode code="completed& quot; /> <component> <observation moodCode="EVN& quot; classCode="OBS"> <templateId root=" 2.16.840.1.971619.10..22.4.2" /> <id nullFlavor="NA& quot; /> <code codeSystem="local" code="MCV" displayName="MEAN CELL VOLUME" /> <statusCode code=& quot;completed" /> <effectiveTime value="100638528270& quot; /> <value unit="fl" xsi:type="PQ" value ="89.7" /> <referenceRange> < observationRange> <text>80.0-100.0</text> </observationRange> </referenceRange> </ observation> </component> <component> < observation moodCode="EVN" classCode="OBS"> < templateId root="2.16.840.1.650011.10.20.22.4.2" /> < id nullFlavor="NA" /> <code codeSystem="local&quot ; code="HGBT" displayName="HEMOGLOBIN" /> < statusCode code="completed" /> <effectiveTime value=& quot;770261139084" /> <value unit="gm/dL" xsi:type ="PQ" value="13.2" /> <interpretationCode codeSystem="local" code="*" /> < referenceRange> <observationRange> <text> 14.0-18.0</text> </observationRange> </ referenceRange> </observation> </component> </ organizer> </entry> <entry> <organizer moodCode="EVN " classCode="BATTERY"> <templateId root=" 2.16.840.1.629423.10.20.22.4.1"/> <id nullFlavor="NA" /> <code codeSystem="local" code="TROPI" displayName="TROPONIN I" /> <statusCode code=" completed" /> <component> <observation moodCode=& quot;EVN" classCode="OBS"> <templateId root=" 2.16.840.1.476214.10.20.22.4.2" /> <id nullFlavor="NA& quot; /> <code codeSystem="local" code="TROPI&quot ; displayName="TROPONIN I" /> <statusCode code=" completed" /> <effectiveTime value="558623558081" /& gt; <value unit="ng/mL" xsi:type="PQ" value=& quot;< 0.02" /> <referenceRange> < observationRange> <text>< 0.07</text> </observationRange> </referenceRange> </ observation> </component> </organizer> </entry> & lt;entry> <organizer moodCode="EVN" classCode="BATTERY& quot;> <templateId root="2.16.840.1.818169.10.20.22.4.1"/& gt; <id nullFlavor="NA" /> <code codeSystem=" local" code="GLUMON" displayName="GLUCOSE (POC)" /> <statusCode code="completed" /> <component> <observation moodCode="EVN" classCode="OBS"> <templateId root="2.16.840.1.033548.10.20.22.4.2" /> <id nullFlavor="NA" /> <code codeSystem=" local" code="GLUMON" displayName="GLUCOSE (POC)" /> <statusCode code="completed" /> < effectiveTime value="628107443534" /> <value unit=&quot ;mg/dL" xsi:type="PQ" value="119" /> < interpretationCode codeSystem="local" code="*" /> <referenceRange> <observationRange> < text>70-99</text> </observationRange> </ referenceRange> </observation> </component> </ organizer> </entry> <entry> <organizer moodCode="EVN " classCode="BATTERY"> <templateId root=" 2.16.840.1.813314.10.20.22.4.1" /> <id nullFlavor="NA&quot ; /> <code codeSystem="local" code="GLUMON" displayName="GLUCOSE (POC)" /> <statusCode code=" completed" /> <component> <observation moodCode=& quot;EVN" classCode="OBS"> <templateId root=" 2.16.840.1.382287.10.20.22.4.2" /> <id nullFlavor="NA& quot; /> <code codeSystem="local" code="GLUMON& quot; displayName="GLUCOSE (POC)" /> <statusCode code=& quot;completed" /> <effectiveTime value="848678378766& quot; /> <value unit="mg/dL" xsi:type="PQ" value="115" /> <interpretationCode codeSystem=" local" code="*" /> <referenceRange> <observationRange> <text>70-99</text> </ observationRange> </referenceRange> </observation&gt ; </component> </organizer> </entry> <entry> <organizer moodCode="EVN" classCode="BATTERY"> <templateId root="2.16.840.1.249681.10.20.22.4.1" /> < id nullFlavor="NA" /> <code codeSystem="local" code="GLUMON" displayName="GLUCOSE (POC)" /> < statusCode code="completed" /> <component> < observation moodCode="EVN" classCode="OBS"> < templateId root="2.16.840.1.654001.10.20.22.4.2" /> < id nullFlavor="NA" /> <code codeSystem="local&quot ; code="GLUMON" displayName="GLUCOSE (POC)" /> & lt;statusCode code="completed" /> <effectiveTime value= "564483566527" /> <value unit="mg/dL" xsi: type="PQ" value="109" /> <interpretationCode codeSystem="local" code="*" /> <referenceRange& gt; <observationRange> <text>70-99</text& gt; </observationRange> </referenceRange> </observation> </component> </organizer> </entry > <entry> <organizermoodCode="EVN" classCode=" BATTERY"> <templateId root="2.16.840.1.439952.10.20.22.4.1& quot; /> <id nullFlavor="NA" /> <code codeSystem ="local" code="GLUMON" displayName="GLUCOSE (POC)&quot ; /> <statusCode code="completed" /> <component& gt; <observation moodCode="EVN" classCode="OBS"&gt ; <templateId root="2.16.840.1.539319.10.20.22.4.2" /> <id nullFlavor="NA" /> <code codeSystem=& quot;local" code="GLUMON" displayName="GLUCOSE (POC)" / > <statusCodecode="completed" /> < effectiveTime value="352590166639" /> <value unit="mg/ dL" xsi:type="PQ" value="104" /> < interpretationCode codeSystem="local" code="*" /> <referenceRange> <observationRange> < text>70-99</text> </observationRange> </ referenceRange> </observation> </component> </ organizer> </entry> <entry> <organizer moodCode="EVN "classCode="BATTERY"> <templateId root=" 2.16.840.1.044488.10.20.22.4.1" /> <id nullFlavor="NA&quot ; /> <code codeSystem="local" code="CBC6" displayName="CBC" /> <statusCode code="completed&quot ; /> <component> <observation moodCode="EVN" classCode="OBS"> <templateId root=" 2.16.840.1.765457.10..22.4.2" /> <id nullFlavor="NA& quot; /> <code codeSystem="local" code="EOS#&quot ; displayName="Eos #" /> <statusCode code=" completed" /> <effectiveTime value="883024356395" /> <value unit="x10^3" xsi:type="PQ" value=& quot;0.34" /> <referenceRange> < observationRange> <text>0-0.5</text> < /observationRange></referenceRange> </observation> & lt;/component> <component> <observation moodCode="EVN& quot; classCode="OBS"> <templateId root=" 2.16.840.1.378242.10.20.22.4.2" /> <id nullFlavor="NA& quot; /> <code codeSystem="local" code="EOS&#37 ;" displayName="Eos %" /> <statusCode code ="completed" /> <effectiveTime value="826246981859 " /> <value unit="%" xsi:type="PQ& quot; value="4.9" /> <interpretationCode codeSystem=& quot;local" code="H" /> <referenceRange> <observationRange> <text>0-4</text> </ observationRange> </referenceRange> </observation&gt ; </component> <component> <observation moodCode ="EVN" classCode="OBS"> <templateId root=& quot;2.16.840.1.174602.10.20.22.4.2" /> <id nullFlavor=&quot ;NA" /> <code codeSystem="local" code="HCT& quot; displayName="HCT" /> <statusCode code=" completed" /> <effectiveTime value="906365834861" /> <value unit="%" xsi:type="PQ" value=& quot;39.5" /> <interpretationCode codeSystem="local" code="L" /> <referenceRange> < observationRange> <text>42.0-52.0</text> </ observationRange> </referenceRange> </observation&gt ; </component> <component> <observation moodCode ="EVN" classCode="OBS"> <templateId root=& quot;2.16.840.1.401773.10..22.4.2" /> <id nullFlavor="NA&quot ; /> <code codeSystem="local" code="HGB" displayName="HGB" /> <statusCode code="completed& quot; /> <effectiveTime value="058063312530" /> <value unit="G/DL" xsi:type="PQ" value="13.3&quot ; /> <interpretationCode codeSystem="local" code=" L" /> <referenceRange> <observationRange&gt ; <text>14.0-18.0</text> </ observationRange></referenceRange> </observation> &lt ;/component> <component> <observation moodCode="EVN& quot; classCode="OBS"> <templateId root=" 2.16.840.1.808934.10.20.22.4.2" /> <id nullFlavor="NA& quot; /> <code codeSystem="local" code="LYMPH#&quot ; displayName="Lymph #" /> <statusCode code=" completed" /> <effectiveTime value="415756106287" /> <value unit="x10^3" xsi:type="PQ" value=& quot;1.44" /> <referenceRange> < observationRange> <text>1.0-4.0</text> </ observationRange> </referenceRange> </observation&gt ; </component> <component> <observation moodCode ="EVN" classCode="OBS"> <templateId root=& quot;2.16.840.1.205763.10.20.22.4.2" /> <id nullFlavor=&quot ;NA" /> <code codeSystem="local" code="LYMPH& amp;#37;" displayName="Lymph %" /> < statusCode code="completed" /> <effectiveTime value=& quot;896009470030" /> <value unit="%" xsi: type="PQ" value="20.7" /> <referenceRange&gt ; <observationRange> <text>20-50</text> </observationRange> </referenceRange> </ observation> </component> <component> < observation moodCode="EVN" classCode="OBS"> < templateId root="2.16.840.1.108985.10.20.22.4.2" /> < id nullFlavor="NA" /> <code codeSystem="local&quot ; code="MCH" displayName="MCH" /> < statusCode code="completed" /> <effectiveTime value=& quot;357067455510" /> <value unit="PG" xsi:type=& quot;PQ" value="31.1" /> <interpretationCode codeSystem="local" code="H" /> < referenceRange> <observationRange> <text> 27.0-31.0</text> </observationRange> </referenceRange&gt ; </observation> </component> <component> <observation moodCode="EVN" classCode="OBS"> <templateId root="2.16.840.1.175259.10.20.22.4.2" /> <id nullFlavor="NA" /> <code codeSystem=" local" code="MCHC" displayName="MCHC" /> & lt;statusCode code="completed" /> <effectiveTime value=" 349258423699" /> <value unit="G/DL" xsi:type=&quot ;PQ" value="33.7" /> <referenceRange> <observationRange> <text>32.0-36.0</text> </observationRange> </referenceRange> </ observation> </component> <component> < observation moodCode="EVN" classCode="OBS"> < templateId root="2.16.840.1.341999.10.20.22.4.2" /> < id nullFlavor="NA" /> <code codeSystem="local&quot ; code="MCV" displayName="MCV" /> < statusCode code="completed" /> <effectiveTime value=& quot;690893805461" /> <value unit="FL" xsi:type=& quot;PQ" value="92.3" /> <referenceRange> <observationRange> <text>80-94</text> &lt ;/observationRange> </referenceRange> </observation& gt; </component> <component> <observation moodCode="EVN" classCode="OBS"> <templateId root="2.16.840.1.915970.10.20.22.4.2" /> <id nullFlavor ="NA" /> <code codeSystem="local" code=" MONO#" displayName="Jessamine #" /> <statusCode code=& quot;completed" /> <effectiveTime value="788876568131& quot;/> <value unit="x10^3" xsi:type="PQ" value="0.56" /> <referenceRange> < observationRange> <text>0.0-0.8</text> & lt;/observationRange> </referenceRange> </ observation> </component> <component> < observation moodCode="EVN" classCode="OBS"> < templateId root="2.16.840.1.174509.10.20.22.4.2" /> < id nullFlavor="NA" /> <code codeSystem="local&quot ; code="MONO%" displayName="Jessamine %" /> <statusCode code="completed" /> < effectiveTime value="711490431526" /> <value unit=" %" xsi:type="PQ" value="8.0" /> < referenceRange> <observationRange> <text> 1.0-9.0</text> </observationRange> </ referenceRange> </observation> </component> < component> <observation moodCode="EVN" classCode=" OBS"> <templateId root="2.16.840.1.577837.10.20.22.4.2& quot; /> <id nullFlavor="NA" /> <code codeSystem="local" code="MPV" displayName="MPV" /& gt; <statusCode code="completed" /> < effectiveTime value="151012436059" /> <value unit=&quot ;FL" xsi:type="PQ" value="11.0" /> < interpretationCode codeSystem="local" code="H" /> <referenceRange> <observationRange> < text>6.0-10.0</text> </observationRange> < /referenceRange> </observation> </component> &lt ;component> <observation moodCode="EVN" classCode=" OBS"> <templateId root="2.16.840.1.649905.10.20.22.4.2& quot; /> <id nullFlavor="NA" /> <code codeSystem="local" code="PLT" displayName="Platelet& quot; /> <statusCode code="completed" /> & lt;effectiveTime value="751143103628" /> <value unit=& quot;x10^3" xsi:type="PQ" value="178" /> & lt;referenceRange> <observationRange> <text> 150-400</text> </observationRange> </ referenceRange> </observation> </component> < component> <observation moodCode="EVN" classCode=" OBS"> <templateId root="2.16.840.1.180434.10.20.22.4.2& quot; /> <id nullFlavor="NA" /> <code codeSystem="local" code="RBC" displayName="RBC" /& gt; <statusCode code="completed" /> < effectiveTime value="979817803649" /> <value unit=&quot ;x10^3" xsi:type="PQ" value="4.28" /> < interpretationCode codeSystem="local" code="L" /> <referenceRange> <observationRange> < text>4.60-6.20</text> </observationRange> &lt ;/referenceRange> </observation> </component> & lt;component> <observation moodCode="EVN" classCode=&quot ;OBS"> <templateId root="2.16.840.1.615130.10.20.22.4.2 " /> <id nullFlavor="NA" /> <code codeSystem="local" code="RDW" displayName="RDW" /& gt; <statusCode code="completed" /> < effectiveTime value="970586529466" /> <value unit=&quot ;%" xsi:type="PQ" value="12.7" /> & lt;referenceRange> <observationRange> <text& gt;12-15</text> </observationRange> </ referenceRange> </observation> </component> < component> <observation moodCode="EVN" classCode=" OBS"> <templateId root="2.16.840.1.642521.10.20.22.4.2& quot; /> <id nullFlavor="NA" /> <code codeSystem="local" code="WBC" displayName="WBC" /& gt; <statusCode code="completed" /> < effectiveTime value="526832532518" /> <value unit=&quot ;x10^3" xsi:type="PQ" value="6.96" /> < referenceRange> <observationRange> <text> 5.8-10.8</text> </observationRange> </ referenceRange> </observation> </component> < component> <observation moodCode="EVN" classCode="OBS& quot;> <templateId root="2.16.840.1.936503.10.20.22.4.2&quot ; /> <id nullFlavor="NA" /> <code codeSystem="local" code="BASO#" displayName="Baso #& quot; /> <statusCode code="completed" /> & lt;effectiveTime value="332950817406" /> <value unit=& quot;x10^3" xsi:type="PQ" value="0.04" /> & lt;referenceRange> <observationRange> <text& gt;0-0.2</text> </observationRange> </ referenceRange> </observation> </component> < component> <observation moodCode="EVN" classCode=" OBS"> <templateId root="2.16.840.1.514511.10.20.22.4.2& quot; /> <id nullFlavor="NA" /> <code codeSystem="local" code="BASO%" displayName=" Baso %" /> <statusCode code="completed" /> <effectiveTime value="007187266890" /> < value unit="%" xsi:type="PQ" value="0.6" / > <referenceRange> <observationRange> <text>0-2</text> </observationRange> </referenceRange> </observation> </component> <component> <observation moodCode="EVN" classCode ="OBS"> <templateId root=" 2.16.840.1.261179.10..22.4.2" /> <id nullFlavor="NA& quot; /> <code codeSystem="local" code="SEG&# 37;" displayName="Neut %" /> <statusCode code="completed" /> <effectiveTime value=" 088309366248" /> <value unit="%" xsi:type= "PQ" value="65.8" /> <referenceRange> <observationRange> <text>50-70</text> </observationRange> </referenceRange> </ observation> </component> <component> < observation moodCode="EVN" classCode="OBS"> < templateId root="2.16.840.1.808690.10.20.22.4.2" /> < id nullFlavor="NA" /> <code codeSystem="local&quot ; code="SEG#" displayName="Neut #" /> < statusCode code="completed" /> <effectiveTime value=& quot;025761638210" /> <value unit="x10^3" xsi:type ="PQ" value="4.58" /> <referenceRange> <observationRange> <text>3.0-7.0</text> </observationRange> </referenceRange> </ observation> </component> </organizer> </entry> & lt;entry> <organizer moodCode="EVN" classCode="BATTERY& quot;> <templateId root="2.16.840.1.880160.10.20.22.4.1" /& gt; <id nullFlavor="NA" /> <code codeSystem=" local" code="CMP13" displayName="Comprehensive Metabolic Panel" /> <statusCode code="completed" /> < component> <observation moodCode="EVN" classCode=" OBS"> <templateId root="[id number]& quot; /> <id nullFlavor="NA" /> <code codeSystem="local" code="NA" displayName="Sodium" /> <statusCode code="completed" /> < effectiveTime value="[id number]" /> <value unit=&quot ;MMOLL" xsi:type="PQ" value="138" /> < referenceRange> <observationRange> <text> 134-145</text> </observationRange> </referenceRange&gt ; </observation> </component> <component> <observation moodCode="EVN" classCode="OBS"> <templateId root="[id number]" /> <id nullFlavor="NA" /> <code codeSystem=" local" code="K" displayName="Potassium" /> <statusCode code="completed" /> <effectiveTime value=& quot;[id number]" /> <value unit="MMOLL" xsi:type ="PQ" value="4.5" /> <referenceRange> <observationRange> <text>3.6-5.0</text> </observationRange> </referenceRange> &lt ;/observation> </component> <component> < observation moodCode="EVN" classCode="OBS"> < templateId root="[id number].2" /> < id nullFlavor="NA" /> <code codeSystem="local&quot ; code="CL" displayName="Chloride" /> < statusCode code="completed" /> <effectiveTime value=& quot;107673230575" /> <value unit="MMOLL" xsi:type ="PQ" value="99" /> <referenceRange> <observationRange> <text>98-107</text> </observationRange> </referenceRange> </ observation> </component> <component> < observation moodCode="EVN" classCode="OBS"> < templateId root="2.16.840.1.251833.10.20.22.4.2" /> < id nullFlavor="NA" /> <code codeSystem="local&quot ; code="CO2" displayName="CO2" /> < statusCode code="completed" /> <effectiveTime value=& quot;794328952905" /> <value unit="MMOLL" xsi:type ="PQ" value="30" /> <referenceRange> <observationRange> <text>22-30</text> </observationRange> </referenceRange> </ observation> </component> <component> < observation moodCode="EVN" classCode="OBS"> < templateId root="2.16.840.1.838232.10.20.22.4.2" /> < id nullFlavor="NA" /> <code codeSystem="local&quot ; code="GLU" displayName="Glucose" /> < statusCode code="completed" /> <effectiveTime value=& quot;134202486639" /> <valueunit="MG/DL" xsi:type= "PQ" value="72" /> <interpretationCode codeSystem="local" code="L" /> < referenceRange> <observationRange> <text>75-110</ text> </observationRange> </referenceRange> </observation> </component> <component> <observation moodCode="EVN" classCode="OBS">< templateId root="2.16.840.1.044855.10.20.22.4.2" /> < id nullFlavor="NA" /> <code codeSystem="local&quot ; code="BUN" displayName="BUN" /> < statusCode code="completed" /> <effectiveTimevalue=& quot;266497864315" /> <value unit="MG/DL" xsi:type ="PQ" value="21" /> <interpretationCode codeSystem="local" code="H" /> < referenceRange> <observationRange> <text> 9-20</text> </observationRange> </ referenceRange></observation> </component> < component> <observation moodCode="EVN" classCode=" OBS"> <templateId root="2.16.840.1.634311.10.20.22.4.2& quot; /> <id nullFlavor="NA" /> <code codeSystem="local" code="CREAT" displayName="Creatinine " /> <statusCode code="completed" /> & lt;effectiveTime value="305902760891" /> <value unit=& quot;MG/DL" xsi:type="PQ" value=".7" />< interpretationCode codeSystem="local" code="L" /> <referenceRange> <observationRange> < text>0.8-1.7</text></observationRange> </ referenceRange> </observation> </component> < component> <observation moodCode="EVN" classCode=" OBS"> <templateId root="2.16.840.1.258761.10.20.22.4.2& quot; /> <id nullFlavor="NA" /> <code codeSystem="local" code="CA" displayName="Calcium&quot ; /> <statusCode code="completed" /> < effectiveTime value="119299716348" /> <value unit=&quot ;MG/DL"xsi:type="PQ" value="9.4" /> < referenceRange> <observationRange> <text> 8.4-10.2</text> </observationRange> </ referenceRange> </observation> </component> < component> <observation moodCode="EVN" classCode=" OBS"> <templateId root="2.16.840.1.630344.10.20.22.4.2& quot; /> <id nullFlavor="NA" /> <code codeSystem="local" code="TBIL" displayName="T Bili&quot ; /> <statusCode code="completed" /> < effectiveTime value="393707253488" /> <value unit=&quot ;MG/DL" xsi:type="PQ" value=".6" /> < referenceRange> <observationRange> <text>0.2- 1.3</text> </observationRange> </ referenceRange> </observation> </component> < component> <observation moodCode="EVN" classCode=" OBS"> <templateId root="2.16.840.1.968015.10.20.22.4.2& quot; /> <id nullFlavor="NA" /> <code codeSystem="local" code="TP" displayName="T. Protein& quot; /> <statusCode code="completed" /> < effectiveTime value="289879933765" /> <value unit=&quot ;G/DL" xsi:type="PQ" value="6.0" /> < interpretationCode codeSystem="local" code="L" /> <referenceRange> <observationRange> < text>6.3-8.2</text> </observationRange> </ referenceRange> </observation> </component> < component> <observation moodCode="EVN" classCode=" OBS"> <templateId root="2.16.840.1.927137.10.20.22.4.2& quot; /> <id nullFlavor="NA" /> <code codeSystem="local" code="AG" displayName="A/G Ratio& quot; /> <statusCode code="completed" /> & lt;effectiveTime value="957406493873" /> <value unit=& quot;RATIO" xsi:type="PQ" value="1.6" /> & lt;referenceRange> <observationRange> <text /& gt; </observationRange> </referenceRange> & lt;/observation> </component> <component> < observation moodCode="EVN" classCode="OBS"> < templateId root="2.16.840.1.032842.10.20.22.4.2" /> < id nullFlavor="NA" /> <code codeSystem="local&quot ; code="ALB" displayName="Albumin" /> < statusCode code="completed" /> <effectiveTime value=& quot;717570215991" /> <value unit="G/DL" xsi:type= "PQ" value="3.7" /> <referenceRange> <observationRange> <text>3.5-5.0</text> </observationRange> </referenceRange> </ observation> </component> <component> < observation moodCode="EVN" classCode="OBS"> < templateId root="2.16.840.1.532351.10.20.22.4.2" /> < id nullFlavor="NA" /> <code codeSystem="local&quot ; code="ALP" displayName="Alk Phos" /> < statusCode code="completed" /> <effectiveTime value=& quot;142625560635" /> <value unit="U/L" xsi:type=& quot;PQ" value="64" /> <referenceRange> <observationRange> <text>38-126</text> </observationRange> </referenceRange> </ observation> </component> <component> < observation moodCode="EVN" classCode="OBS"> < templateId root="2.16.840.1.387672.10.20.22.4.2" /> < id nullFlavor="NA" /> <code codeSystem="local&quot ; code="ALT" displayName="ALT" /> < statusCode code="completed" /> <effectiveTime value=& quot;409744641398" /> <value unit="U/L" xsi:type=& quot;PQ" value="31" /> <referenceRange> <observationRange> <text>11-66</text> </observationRange> </referenceRange> </ observation> </component> <component> < observation moodCode="EVN" classCode="OBS"> < templateId root="2.16.840.1.629752.10.20.22.4.2" /> < id nullFlavor="NA" /> <code codeSystem="local&quot ; code="AST" displayName="AST" /> < statusCode code="completed" /> <effectiveTime value=& quot;831651982733" /> <value unit="U/L" xsi:type=& quot;PQ" value="24" /> <referenceRange> <observationRange> <text>14-36</text> </observationRange> </referenceRange> </ observation> </component> </organizer> </entry> & lt;entry> <organizer moodCode="EVN" classCode="BATTERY& quot;> <templateId root="2.16.840.1.746882.10.20.22.4.1" /& gt; <id nullFlavor="NA" /> <code codeSystem=" local" code="TSH" displayName="TSH" /> < statusCode code="completed" /> <component> < observation moodCode="EVN" classCode="OBS"> < templateId root="2.16.840.1.726258.10.20.22.4.2" /> < id nullFlavor="NA" /> <code codeSystem="local&quot ; code="TSH" displayName="TSH" /> < statusCode code="completed" /> <effectiveTime value=& quot;912314888864"/> <value unit="UIUML" xsi:type= "PQ" value="2.46" /> <referenceRange> <observationRange> <text>0.50-6.00</text> </observationRange> </referenceRange> & lt;/observation> </component> </organizer> </entry&gt ; <entry> <organizer moodCode="EVN" classCode=" BATTERY"> <templateId root="2.16.840.1.726304.10.20.22.4.1& quot; /> <id nullFlavor="NA" /> <code codeSystem ="local" code="BMP15" displayName="Basic Metabolic Panel" /> <statusCode code="completed" /> < component> <observation moodCode="EVN" classCode=" OBS"> <templateId root="2.16.840.1.045383.10.20.22.4.2& quot; /> <id nullFlavor="NA" /> <code codeSystem="local" code="NA" displayName="Sodium" /> <statusCode code="completed" /> < effectiveTime value="130971555363" /> <value unit=" MMOLL" xsi:type="PQ" value="141" /> < referenceRange> <observationRange> <text> 134-145</text> </observationRange> </ referenceRange> </observation> </component> < component> <observation moodCode="EVN" classCode=" OBS"> <templateId root="2.16.840.1.243968.10.20.22.4.2& quot; /> <id nullFlavor="NA" /> <code codeSystem="local" code="K" displayName="Potassium&quot ; /> <statusCode code="completed" /> < effectiveTime value="544521464045" /> <value unit=&quot ;MMOLL" xsi:type="PQ" value="4.7" /> < referenceRange> <observationRange> <text>3.6 -5.0</text> </observationRange> </ referenceRange> </observation> </component> < component> <observation moodCode="EVN" classCode=" OBS"> <templateId root="2.16.840.1.314639.10.20.22.4.2& quot; /> <id nullFlavor="NA" /> <code codeSystem="local" code="CL" displayName="Chloride&quot ; /> <statusCode code="completed" /> < effectiveTime value="630428991602" /> <value unit=&quot ;MMOLL" xsi:type="PQ" value="103" /> < referenceRange> <observationRange> <text> 98-107</text> </observationRange></referenceRange> </observation> </component> <component> <observation moodCode="EVN" classCode="OBS"> <templateId root="2.16.840.1.982945.10.20.22.4.2" /> & lt;id nullFlavor="NA" /> <code codeSystem="local& quot; code="CO2" displayName="CO2" /> < statusCode code="completed" /> <effectiveTime value=& quot;504112848047" /> <value unit="MMOLL" xsi:type ="PQ" value="31" /> <interpretationCode codeSystem="local" code="H" /> <referenceRange& gt; <observationRange> <text>22-30</text& gt; </observationRange> </referenceRange> </observation> </component> <component> &lt ;observation moodCode="EVN"classCode="OBS"> < templateId root="2.16.840.1.822100.10.20.22.4.2" /> < id nullFlavor="NA" /> <code codeSystem="local&quot ; code="GLU" displayName="Glucose" /> < statusCode code="completed" /> <effectiveTime value=& quot;775306256124" /> <value unit="MG/DL" xsi:type ="PQ" value="93" /> <referenceRange> <observationRange> <text>75-110</text> </observationRange> </referenceRange> </ observation> </component> <component> < observation moodCode="EVN" classCode="OBS"> < templateId root="2.16.840.1.647936.10.20.22.4.2" /> < id nullFlavor="NA" /> <code codeSystem="local&quot ; code="BUN" displayName="BUN" /> < statusCode code="completed" /> <effectiveTime value=& quot;403523278988" /> <value unit="MG/DL" xsi:type ="PQ" value="21" /> <interpretationCode codeSystem="local" code="H" /> < referenceRange> <observationRange> <text>9-20&lt ;/text> </observationRange> </referenceRange&gt ; </observation> </component> <component> <observation moodCode="EVN" classCode="OBS"> <templateId root="2.16.840.1.527766.10.20.22.4.2" /> <id nullFlavor="NA" /> <codecodeSystem=" local" code="CREAT" displayName="Creatinine" /> < statusCode code="completed" /> <effectiveTime value=& quot;359821190184" /> <value unit="MG/DL" xsi:type ="PQ" value=".84" /> <referenceRange> <observationRange> <text>0.8-1.7</text> </observationRange> </referenceRange> &lt ;/observation> </component> <component> < observation moodCode="EVN" classCode="OBS"> < templateId root="2.16.840.1.182345.10.20.22.4.2" /> < id nullFlavor="NA" /> <code codeSystem="local&quot ; code="CA" displayName="Calcium" /> < statusCode code="completed" /> <effectiveTime value=& quot;017315237682" /> <value unit="MG/DL" xsi:type ="PQ" value="9.5" /> <referenceRange> <observationRange> <text>8.4-10.2</text> </observationRange> </referenceRange> </ observation> </component> <component> < observation moodCode="EVN" classCode="OBS"> < templateId root="2.16.840.1.717841.10.20.22.4.2" /> <id nullFlavor="NA" /> <code codeSystem="local" code="EGFR" displayName="EGFR" /> < statusCode code="completed" /> <effectiveTime value=&quot ;111937607653" /> <value unit="MLMIN" xsi:type=& quot;PQ" value="93" /> <referenceRange> <observationRange> <text /> </ observationRange> </referenceRange> </observation&gt ; </component> </organizer> </entry> <entry> <organizer moodCode="EVN" classCode="BATTERY"> & lt;templateId root="2.16.840.1.593823.10.20.22.4.1" /> <id nullFlavor="NA" /> <code codeSystem="local" code= "TSH" displayName="TSH" /> <statusCode code=&quot ;completed" /> <component> <observation moodCode=& quot;EVN" classCode="OBS"> <templateId root=" 2.16.840.1.927699.10.20.22.4.2" /> <id nullFlavor="NA& quot; /> <code codeSystem="local" code="TSH" displayName="TSH" /> <statusCode code="completed& quot; /> <effectiveTime value="951280178888" /> <value unit="UIUML" xsi:type="PQ" value="1.79& quot; /> <referenceRange> <observationRange> <text>0.50-6.00</text> </ observationRange> </referenceRange> </observation&gt ; </component> </organizer> </entry></section> Encounters ACCT No. Visit Discharge Status Pt. Type Provider Facility Loc./Unit Complaint Date/Time [id number] 01/03/2013 01/05/2013 DIS [place]pat[place] Chance Lawson8TN 066 10:16:00 14:50:[address] 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 [id number] 03/16/2013 03/16/2013 CLS Outpatie Krupa Wagner RT 045 12:52:00 23:59:59 shar YAO, [facility] [id number] 12/25/2016 12/25/2016 DIS Outpatie KAITLYNN Maradiaga LAB 16:01:00 16:01:00 nt MANA Dia MD, [facility] R [id number] 08/20/2016 08/20/2016 DIS Outpatie ULLOM [place] LUIGI 07:30:00 09:25:[id number] 01/24/2016 01/24/2016 DIS Outpatie ULLOM [place] ALAB 10:20:00 [id number]/31/2015 07/31/2015 DIS Outpatie ULLOM [place] MED 09:30:00 11:05:[id number] 11/16/2013 11/16/2013 DIS Outpatie ULL[place] ALAB 11:08:00 11:08:00 [id number] 11/03/2013 11/03/2013 DIS Outpatie ULLOM [place] ALAB 16:25:00 16:25:00 [facility] [id number] 12/19/2012 12/19/2012 DIS Outpatie ULLOM [place] ALAB 15:44:00 15:44:00 [facility] [id number] 07/29/2012 07/29/2012 DIS Outpatie ULLOM [place] ALAB 07:28:00 07:28:00 [id number] 01/13/2012 Document 14:19:00 Registra tion [id number] 08/12/2011 Document 10:52:00 Registra tion [id number] 08/06/2011 Document 07:15:00 Registra tion [id number] 12/20/2010 Document 11:28:00 Registra tion [id number] 09/19/2010 Document 13:53:00 Registra tion [id number] 09/13/2010 Document 12:28:00 Registra tion
[2017-02-11 06:29] VITALS: BMI 34.0
[2017-02-11] MEDS ORDERED: TRANEXAMIC ACID 1,000 MG in NS 100 ML IV ONE (07:00)
[2017-02-11] MEDS: LR 1,000 ML IV SCH ×2 (07:28→10:36)
[2017-02-11] MEDS ORDERED: NOZIN NASAL SWAB NAS ONE ×2 (07:30→12:23)
[2017-02-11] MEDS ORDERED: EPINEPHrine PF 0.25 MG, BUPIVACAINE 0.25% PF 30 ML, MORPHINE SULFATE 15 MG, KETOROLAC I... OPSITE ONE (08:00)
--- NOTE | 2017-02-11 09:04 | Anesthesia Preoperative Report ---
Anesthesia Preoperative Record - Date and Time Date: 02/11/17 Preoperative Diagnosis: Rt TKA M17.11 Proposed Procedure: Right TKA NPO Since Date: 02/10/17 NPO Since Time: 23:30 Allergies/Adverse Reactions: Allergies Allergy/AdvReac Type Severity Reaction Status Date / Time Penicillins Allergy Severe restricted Verified 01/28/17 07:15 airway - Vital Signs Vital Signs: Temperature 98.3 F 02/11/17 06:29 Pulse Rate 64 02/11/17 07:55 Respiratory Rate 20 02/11/17 06:29 Blood Pressure 109/53 02/11/17 07:55 Pulse Oximetry 94 02/11/17 06:29 Height and Weight: Height 6 ft Weight 113.8 kg Body Mass Index 34.0 - Medications Inpatient Medications: Current Medications Lactated Ringer's (Lactated Ringers) 1,000 mls @ 50 mls/hr IV .Q20H ADÁN Last Admin: 02/11/17 07:28 Dose: 50 mls/hr Sodium Chloride (Iv Flush) 10 - 80 ml IV PRN PRN PRN Reason: Flushing Home Medications: Home Medications Medication Instructions Recorded Confirmed Type Advair Diskus (Fluticasone 250 1 puff INH BID 10/01/16 02/11/17 History mcg-salmeterol 50 mcg)dose powdr for inhalation Glucophage (metformin) 1,000 mg 1,000 mg PO BID 10/01/16 02/11/17 History tablet Lyrica (pregabalin) 50 mg capsule 50 mg PO TID 10/01/16 02/11/17 History Naproxen sodium 220 mg tablet 440 mg PO DAILY PRN 10/01/16 02/11/17 History aspirin 81 mg chewable tablet 81 mg PO DAILY tab 10/01/16 02/11/17 History cyanocobalamin (vit B-12) 1,000 1,000 mcg PO DAILY tab 10/01/16 02/11/17 History mcg tablet iron 18 mg tablet 29 mg PO DAILY tab 10/01/16 02/11/17 History levothyroxine 175 mcg tablet 175 mcg PO DAILY tab 10/01/16 02/11/17 History multivitamin tablet 1 cap PO DAILY 10/01/16 02/11/17 History Cymbalta (duloxetine) 60 mg 120 mg PO DAILY cap 12/21/16 02/11/17 History capsule,delayed release Klonopin (clonazepam)1 mg tablet 1 mg PO BID tab 12/21/16 02/11/17 History Lipitor (atorvastatin) 80 mg tablet 80 mg PO DAILY tab 12/21/16 02/11/17 History Singulair (montelukast) 10 mg 10 mg PO DAILY tab 12/21/16 02/11/17 History tablet Zestril (lisinopril) 30 mg tablet 60 mg PO DAILY tab 12/21/16 02/11/17 History trazodone 100 mg tablet 300 mg PO HS tab 12/21/16 02/11/17 History Calcium 600 + D [Caltrate + D] 2 tab PO DAILY 01/26/17 02/11/17 History Buspirone [Buspar] 10 mg PO BID 01/28/17 02/11/17 History Is Patient on Beta Ching?: No - Medical History Respiratory: Reports: Asthma, Sleep Apnea (cpap) DENIES: Bronchitis, Chronic Obstructive Pulmonary Disease (COPD), Dyspnea, Orthopnea, Pulmonary Embolism, Pneumonia, Upper Respiratory Infection, Pulmonary Edema, Tuberculosis, Other Cardiovascular: Reports: Hypertension, High Cholesterol DENIES: Abnormal EKG, Angina, Arrhythmia, Congestive Heart Failure, Coronary Artery Disease, Heart Murmur, Hypotension, Myocardial Infarction, Rheumatic Fever, Valvular Heart Disease, Other Gastrointestional: DENIES: Obstructive Bowel, Hepatitis, Cirrhosis, Nausea or Vomiting Present, Gastroesophageal Reflux Disease, Gastrointestinal Bleeding, Hiatal Hernia, Ulcer , Morbid Obesity, Other Neuro/Musculoskeletal: Reports: HX.MS.OSAR (knees and hands), Back Problems, Depression Denies: Cerebrovascular Accident, Headaches, Loss of Consciousness, Muscle Weakness, Neuromuscular Disorder, Paralysis, Paresthesia, Syncope, Seizures, Other Renal/Endocrine: Reports: Diabetes Mellitus Type 2, Thyroid Disease DENIES: Diabetes Mellitus Type 1, Renal Failure, Dialysis, Weight Loss, Weight Gain, Other Other History: DENIES: Anesthesia Reactions, Now, Blood Transfusions, Chemotherapy , Cancer, Hemophilia, Malignant Hyperthermia, Sickle Cell Disease, Other - Surgical History HEENT Surgeries: Reports: Tonsillectomy Cardiac Surgeries/Treatments: Reports: Cardiac Catheterization (negative findings) Respiratory Surgery/Treatments: Reports: CPAP Use GI Surgery/Treatments: Reports: Other (gastric bypass) Surgery/Treatment: REPORT: Transurethral Resection (prostate X2) Musculoskeletal Surgery/Tx: Reports: Carpal Tunnel Release (left), Knee Arthroscopy (left X3), Total Knee Replacement (left), Other (back surgery; left foot for plantar fasciitis) Hx Family Anesthesia Reaction: No History of Motion Sickness: No - Social History Smoking Status: Former smoker Hx Chewing Tobacco Use: No Second Hand Exposure: No Substance Use Type: does not use Alcohol Intake: former Alcohol Intake Frequency: does not drink - Pertinent Findings Laboratory: CBC and BMP 02/11/17 06:35 BMP 02/11/17 06:35 Sodium 146 H Potassium 4.3 Chloride 107 Carbon Dioxide 28 BUN 23.0 H Creatinine 1.0 Glucose 110 Calcium 9.6 EKG: Sinus Rhythm - Physical Exam Respiratory Exam: Present: lungs clear, bilateral breath sounds equal Cardiovascular Exam: Present: regular rate and rhythm, no murmur - Airway Assessment Mallampati Score: I TMD: 3 Fingerbreadths Overall Assessment: no airway concerns - ASA ASA Score: 2 - Discussion Discussion: Discussed risks/options/alternatives of anesthesia and questions answered. Patient consents. Nursing pain assessment noted. Present for Discussion: spouse Attestation Statement: Prior to the delivery of any anesthetic medication, I examined the patient, developed the plan, obtained the patient's consent and discussed the risk and benefits of the procedure with the patient/guardian. - Additional Information Seen by Anesthesia: Yes
[2017-02-11] MEDS ORDERED: VANCOMYCIN 1,000 MG INJECTION ONE (09:11)
[2017-02-11] MEDS ORDERED: PROPOFOL 500 MG/50 ML VIAL IV ONE (09:26)
[2017-02-11] MEDS ORDERED: MIDAZOLAM 2mg/2ml INJECTION ONE (09:27)
[2017-02-11] MEDS ORDERED: FentaNYL 100 MCG/2 ML INJECTION ONE (09:27)
[2017-02-11] MEDS ORDERED: KETAMINE 500 MG/10 ML INJECTION ONE (09:40)
[2017-02-11] MEDS ORDERED: EPHEDRINE 50mg/ml INJECTION ONE (09:42)
[2017-02-11] MEDS ORDERED: LIDOCAINE 2% JELLY Tube 30ml ONE (10:01)
[2017-02-11] MEDS ORDERED: VANCOMYCIN 1,000 MG INJECTION IAR ONE (10:13)
[2017-02-11] MEDS ORDERED: ROPIVACAINE 0.5% (5mg/ml) 30ml INJ ONE (11:04)
--- NOTE | 2017-02-11 11:14 | Operative Note ---
- Procedure Preoperative Diagnosis: Right knee primary degenerative joint disease Postoperative Diagnosis: Same as preoperative diagnosis. Surgeon: Ethel Espinoza MD District Court Judge: Lester Castaneda Complications: None. Anesthesia: Spinal. Estimated Blood Loss: See Anesthesia Record. Fluids: Please see Anesthesia Record. Description of Procedure: Mr. Murillo and his right knee were identified and marked in the preoperative holding area. He was brought back to the operating suite after a saphenous nerve block was placed in the preoperative holding area. Spinal anesthetic was administered and he was placed supine on the operating table. The right lower extremity was prepped and draped in my normal sterile fashion. Timeout was performed. The [employer] robot was used during the surgery. He has fixed varus deformity with a 10 flexion contracture. A standard anterior midline incision followed by medial parapatellar arthrotomy was performed. Anterior fat pad and meniscus were removed. He has severe loss of bone in the medial compartment as well as the patellofemoral compartment. The patella was resurfaced to a size 35. Tibial and femoral arrays were placed both within the original incision. Checkpoints were then placed both in the femur and the tibia. The bone was then registered with the [employer] robot. Osteophytes were removed and gaps were captured both 90 and 0 with correction. [employer] robotic software was used to manipulate the components to achieve 18 mm gaps throughout. The [employer] robotic arm was then used to assist with the bone cuts. Posterior osteophytes and remaining meniscus were removed. Trial components were placed. We used a 5 femur and a 6 tibia with a 9 mm spacer. He tracked well tracked well but was slightly tight medially. A partial release of the PCL corrected this. After which he was well balanced throughout range of motion. The tibia was then stamped the proper rotation. Trial components fit well as bone quality was excellent so we proceed with a press-fit components. All components were press-fit into place. The knee was ranged one more time to ensure good stability, balance and patellar tracking. 1 g of vancomycin powder was then placed into the knee joint. The capsulotomy was then closed with #1 Vicryl. I then left my assistant vice president to close the subcutaneous tissue with 2-0 Vicryl. Running 4-0 Monocryl will be used in the subcuticular layer. Dermabond will be used on the skin followed by sterile dressing. After drapes are removed patient will be taken to recovery room under the care of anesthesia.
--- NOTE | 2017-02-11 11:44 | Anesthesia Postoperative Note ---
- Date and Time Date: 02/11/17 Time: 11:44 - Status Patient Participated in Evaluation: Patient Participated in Person Vital Signs: Temperature 98.3 F 02/11/17 06:29 Pulse Rate 64 02/11/17 07:55 Respiratory Rate 20 02/11/17 06:29 Blood Pressure 109/53 02/11/17 07:55 Pulse Oximetry 94 02/11/17 06:29 Respiratory Function: Airway Patent, Regular Respirations EKG: Sinus Rhythm Mental Status: Alert and Oriented Pain Intensity: 0 Hydration: IV Infusing Complications During Recover: None Apparent - Follow-Up Instructions Instructions: Per Surgeon
--- NOTE | 2017-02-11 11:46 | Anesthesia Procedure Note ---
Peripheral Nerve Blockade - Procedure Physician: Dheeraj Espinoza MD Date: 02/11/17 Surgical Procedure: Right TKA Discussion: Discussed risks/options/alternatives of anesthesia and questions answered. Patient consents. Nursing pain assessment noted. Block Start: 11:35 Block Stop: 11:40 Blocked Employed: Adductor Canal Indication: Post-Operative Pain Approach: Right Side Confirmed Position: Supine Patient: Consent, Risks/Benefits Discussed IV Sedation: No (spinal intact) Sedation: Awake Initial Vital Signs: Temperature 98.3 F 02/11/17 06:29 Temperature Source Oral 02/11/17 06:29 Pulse Rate 68 02/11/17 06:29 Respiratory Rate 20 02/11/17 06:29 Blood Pressure 99/52 02/11/17 06:29 Blood Pressure Mean 67 02/11/17 06:29 Blood Pressure Position Sitting 02/11/17 06:29 Pulse Oximetry 94 02/11/17 06:29 Oxygen Delivery Method 02/11/17 06:29 Post Vital Signs: Temperature 98.3 F 02/11/17 06:29 Pulse Rate 64 02/11/17 07:55 Respiratory Rate 20 02/11/17 06:29 Blood Pressure 109/53 02/11/17 07:55 Pulse Oximetry 94 02/11/17 06:29 Initial Pain Pain Score: 0 Post Block Pain Score: 0 Ultrasound Used?: Yes - Injectate Ropivacaine (%): 0.5 Ropivacaine (mL): 14 Was Epi 1:200,000 Used?: No Injection: Injection made incrementally with constant monitoring and aspiration every ml
--- NOTE | 2017-02-11 12:17 | XRay Report ---
Indication: postoperative image PROCEDURE: XR knee RT 2V: Encounter: Initial Comparison: December 21, 2016 Findings: Postoperative changes of right total knee replacement are seen. There is expected postoperative subcutaneous gas. No evidence of hardware failure or acute fracture. No retained radiopaque surgical instruments or sponges. Overlying material causing artifact. Impression: New right total knee prosthesis without evidence of immediate complication. .
[2017-02-11] MEDS ORDERED: ONDANSETRON 4 MG/2 ML INJECTION IVP PRN (12:23)
[2017-02-11] MEDS ORDERED: DiphenhydrAMINE 25 MG CAPSULE PO PRN (12:23)
[2017-02-11] MEDS ORDERED: DiphenhydrAMINE 50 MG/ML INJECTION IVP PRN (12:23)
[2017-02-11] MEDS ORDERED: INSULIN ASPART 100unit/ml INJECTION SQ PRN (12:23)
[2017-02-11] MEDS ORDERED: LORazepam 1 MG TABLET PO PRN (12:23)
[2017-02-11] MEDS ORDERED: NAPROXEN 220 MG TABLET PO PRN (12:23)
[2017-02-11] MEDS: NS 1,000 ML IV SCH (12:28)
[2017-02-11] MEDS: ACETAMINOPHEN 325 MG TABLET PO SCH ×3 (13:06→21:14)
[2017-02-11] MEDS ORDERED: SALINE FLUSH 10ml SYRINGE IV PRN (14:05)
[2017-02-11] MEDS: PREGABALIN 50 MG CAPSULE PO SCH ×2 (14:26→21:15)
[2017-02-11] MEDS: CLINDAMYCIN PB 900 MG/50 ML BAG IV SCH ×2 (16:37→22:09)
[2017-02-11] MEDS: NOZIN NASAL SWAB NAS SCH ×2 (16:37→21:13)
[2017-02-11] MEDS: Oxycodone *IR* 5 MG TABLET PO PRN ×3 (16:42→23:49)
[2017-02-11] MEDS ORDERED: SENNOSIDES 8.6 MG TABLET PO SCH (21:00)
[2017-02-11] MEDS ORDERED: ATORVASTATIN 40 MG TABLET PO SCH (21:00)
[2017-02-11] MEDS ORDERED: TRAZODONE 100 MG TABLET PO SCH (21:00)
[2017-02-11] MEDS: ClonazePAM 1 MG TABLET PO SCH (21:14)
[2017-02-11] MEDS: DOCUSATE SODIUM 100 MG CAPSULE PO SCH (21:14)
[2017-02-11] MEDS: BUSPIRONE 10 MG TABLET PO SCH (21:14)
[2017-02-11] MEDS: ASPIRIN *EC* 81 MG TABLET PO SCH (21:15)
[2017-02-11 23:41] VITALS: RESP 16
[2017-02-12] MEDS: NS 1,000 ML IV SCH (02:45)
[2017-02-12] MEDS: CLINDAMYCIN PB 900 MG/50 ML BAG IV SCH (02:46)
[2017-02-12] MEDS: NOZIN NASAL SWAB NAS SCH ×2 (05:59→11:58)
[2017-02-12] MEDS: Oxycodone *IR* 5 MG TABLET PO PRN ×3 (06:14→10:14)
[2017-02-12] MEDS ORDERED: LEVOTHYROXINE 175 MCG TABLET PO SCH (06:30)
--- NOTE | 2017-02-12 07:12 | Orthopedic Progress Note ---
Date: Date: 02/12/17 Time: 708 Subjective/Severity of Illness: Raul is doing well. Pain is controlled. Denies CP, cough, SOA or other concerns. He has been mobile with good tolerance. Anticipates discharge later today. Orthopedic Objective PO Vital signs: Temperature 97.9 F 02/12/17 03:49 Pulse Rate 65 02/12/17 03:49 Respiratory Rate 16 02/12/17 03:49 Blood Pressure 101/60 02/12/17 03:49 Pulse Oximetry 96 02/12/17 03:49 Height and Weight: Height 6 ft Weight 250 lb 14.177 oz Body Mass Index 34.0 - Constitutional General Appearance: Present: alert, cooperative, no acute distress - Respiratory Exam Present: non-labored - Cardiovascular Exam Present: pedal pulses intact - Extremities Exam Extremities: Present: pulses intact. Absent: calf tenderness - Surgical Site Incision: Mepilex dressing intact, no drainage - Neurological Exam Present: intact to light touch, no deficits - Psychiatric Exam Present: alert, normal affect - Labs Result Diagrams: 02/12/17 03:59 02/12/17 03:59 Abnormal lab results 02/12/17 Range/Units 03:59 Hgb 9.9 L (13.5-17.5) GM/DL Hct 31.0 L (41-53) % H & H 02/12/17 Range/Units 03:59 Hgb 9.9 L (13.5-17.5) GM/DL Hct 31.0 L (41-53) % Orthopedic Assessment and Plan (1) Primary osteoarthritis of right knee Status: Acute Assessment and Plan: Current anti-coagulation protocol for VTE prophylaxis. SCD's and early mobilization for added coverage. Resume Metformin. Continue to monitor blood sugars. PT/OT services to improve independent function. Discharge Planning per Case Management. - Anticoagulation Therapy Anticoagulation: ASA 81 mg PO BID x6 weeks Hospital Course Summary Disclaimer: The visit summary below is not to be considered part of the above Progress Note.
[2017-02-12] MEDS ORDERED: FERROUS SULFATE 324 MG TABLET PO SCH (08:00)
[2017-02-12] MEDS ORDERED: METFORMIN 1,000 MG TABLET PO SCH (08:00)
[2017-02-12] MEDS: ASPIRIN *EC* 81 MG TABLET PO SCH (08:03)
[2017-02-12] MEDS: ACETAMINOPHEN 325 MG TABLET PO SCH ×3 (08:03→12:00)
[2017-02-12] MEDS: DOCUSATE SODIUM 100 MG CAPSULE PO SCH (08:03)
[2017-02-12] MEDS: PREGABALIN 50 MG CAPSULE PO SCH (08:04)
[2017-02-12] MEDS: BUSPIRONE 10 MG TABLET PO SCH (08:04)
[2017-02-12] MEDS: ClonazePAM 1 MG TABLET PO SCH (08:06)
--- NOTE | 2017-02-12 08:07 | Discharge Summary ---
Orthopedic Discharge Info Date of admission: 02/11/17 06:15 Anticipated date of discharge: 02/12/17 Primary care physician: Verena Suarez MD Attending Physician: Dheeraj Espinoza MD Consults: 02/11/17 06:40 Consult to Anesthesiology [CONS] Routine Reason For Exam: Preoperative Assessment 02/11/17 12:23 Case Management Consult [CONS] Routine Reason For Exam: Discharge Planning DME-Walker [CONS] Routine Height: 6 ft Weight: 250 lb 14.177 oz Total Joint Outpatient Therapy [CONS] Routine Comment: Remove dressing in 2 weeks - Discharge Diagnosis (1) Primary osteoarthritis of right knee Status: Acute - Procedures Procedures: Rt TKA - Laboratory Result Diagrams: 02/12/17 03:59 02/12/17 03:59 Laboratory: Abnormal lab results 02/12/17 Range/Units 03:59 Hgb 9.9 L (13.5-17.5) GM/DL Hct 31.0 L (41-53) % H & H 02/12/17 Range/Units 03:59 Hgb 9.9 L (13.5-17.5) GM/DL Hct 31.0 L (41-53) % Orthopedic Discharge HPI - HPI Comments This patient was admitted for elective surgical tx of end stage degenerative joint disease that failed to respond to conservative treatment. Further details of this is found in the admission H&P. Orthopedic Hospital Course Hospital course: 02/12/17 08:02 After appropriate preoperative clearance and signing of operative consent, the patient was given IV antibiotics, according to orthopedic protocol. The patient was taken to the operating room and underwent elective right total knee arthroplasty. Following surgery, antibiotics were discontinued less than 24 hours according to joint protocol. Appropriate anticoagulants were initiated and SCDs added for DVT prevention. The dressing was clean, dry, and intact. Pain control was obtained via multimodal approach. Bowel motivation addressed with scheduled and PRN medications. Early mobilization was initiated through PT services. Discharge arrangements made by a collaborative effort between the patient and Case Management. Follow-up is scheduled in 2-3 weeks. Discharge instructions given by orthopedic providers and nursing staff at discharge. Discharge condition was good. Discharge Plan - Med Rec/Dispo Referrals/Follow Up: Dheeraj Espinoza MD [Physician] - 03/08/17 11:30 am [facility] Instructions: [facility] Postop Instructions Additional Instructions: ON 02/16/2017 AT 7:45AM FOR PHYSICAL THERAPY LIZZ. PHONE [phone] Prescriptions: New Aspirin *EC* [Ecotrin] 81 mg PO BID tab Docusate Sodium [Colace] 100 mg PO BID cap Naproxen [Aleve] 440 mg PO BID PRN tab PRN Reason: Pain Oxycodone *IR* [Roxicodone *Ir*] 5 - 15 mg PO Q3H PRN #60 tab PRN Reason: Breakthrough Pain PEG 3350 17gm PACKET [Miralax] 17 gm PO DAILY packet Acetaminophen [Tylenol] 650 mg PO QID tab Milk of Magnesia [Mom] 30 ml PO DAILY udc Continue Calcium 600 + D [Caltrate + D] 2 tab PO DAILY Buspirone [Buspar] 10 mg PO BID levothyroxine 175 mcg tablet 175 mcg PO DAILY tab Glucophage (metformin) 1,000 mg tablet 1,000 mg PO BID Advair Diskus (Fluticasone 250 mcg-salmeterol 50 mcg)dose powdr for inhalation 1 puff INH BID iron 18 mg tablet 29 mg PO DAILY tab multivitamin tablet 1 cap PO DAILY trazodone 100 mg tablet 300 mg PO HS tab Cymbalta (duloxetine) 60 mg capsule,delayed release 120 mg PO DAILY cap Klonopin (clonazepam)1 mg tablet 1 mg PO BID tab Singulair (montelukast) 10 mg tablet 10 mg PO DAILY tab Lipitor (atorvastatin) 80 mg tablet 80 mg PO DAILY tab Zestril (lisinopril) 30 mg tablet 60 mg PO DAILY tab Discontinued aspirin 81 mg chewable tablet 81 mg PO DAILY tab Naproxen sodium 220 mg tablet 440 mg PO DAILY PRN PRN Reason: Pain No Action cyanocobalamin (vit B-12) 1,000 mcg tablet 1,000 mcg PO DAILY tab - Disposition 01 Discharged Home, Self-Care - Dismissal Complete Discharge Instructions are:: Complete
[2017-02-12] MEDS ORDERED: MONTELUKAST 10 MG TABLET PO SCH (09:00)
[2017-02-12] MEDS ORDERED: LISINOPRIL 30 MG TABLET PO SCH (09:00)
[2017-02-12] MEDS ORDERED: POLYETHYL GLYCOL 3350 17gm PACKET PO SCH (09:00)
[2017-02-12] MEDS ORDERED: DULOXETINE 60 MG CAPSULE PO SCH (09:00)
[2017-02-12] MEDS ORDERED: SENNOSIDES 8.6 MG TABLET PO PRN (11:35)
[2017-02-12 11:45] VITALS: BP 104/55; PULSE 65; TEMP 98.2; O2SAT 93
[2017-02-13] MEDS ORDERED: BISACODYL 10 MG SUPPOSITORY RECTALLY SCH (20:00)
== END 2017-02-12 12:15 | disposition home or self-care (01) | DRG 470 ==
LOC: SRG 06:15
PROVIDERS: ADMIT Orthopaedic Surgery; ATTEND Orthopaedic Surgery